=== PATIENT | female | born 1960 | race Caucasian/White ===

== ENCOUNTER 2018-05-31 19:38 | Emergency (ER) | payer OTHER, SELFPAY ==
[2018-05-31 19:39] VITALS: BP 142/89; PULSE 86; RESP 14; TEMP 36.6; O2SAT 95; BMI 24.7
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
[2018-05-31 21:41] VITALS: BP 135/78; PULSE 80; RESP 14; O2SAT 98
--- NOTE | 2018-05-31 22:09 | ED.DEP ---
ED Disposition - Plan for ED Patient: Disposition: Home or Assisted Living Chief Complaint: Head Injury Instructions: ED Neuralgia Trigeminal Referrals: Holly Gordon NP-C [Primary Care Provider] - 1-2 Days if not improving Additional Instructions: Your head CT was normal. If you have any further episodes of your severe facial pain, please see your neurologist for further workup. It is unclear what is causing your pain and there are many possible causes, but one possible cause of facial pain is trigeminal neuralgia. You would need further episodes of pain for this to be diagnosed. If you have any worsening of your condition or any new concerning symptoms, please return immediately to the emergency department for another evaluation.
[2018-05-31 22:24] VITALS: BP 122/74; PULSE 82; RESP 14; O2SAT 98
== END 2018-05-31 22:25 | disposition home or self-care (01) ==
PROVIDERS: Emergency Provider Emergency Medicine; Family Provider Nurse Practitioner Adult Health; PCP Nurse Practitioner Adult Health
DX: R51 Headache (principal); M79.89 Other specified soft tissue disorders; G40.909 Epilepsy, unspecified, not intractable, without status epilepticus; S00.03XD Contusion of scalp, subsequent encounter; S05.11XD Contusion of eyeball and orbital tissues, right eye, subsequent encounter; V19.9XXD Pedal cyclist (driver) (passenger) injured in unspecified traffic accident, subsequent encounter; Z79.899 Other long term (current) drug therapy
CPT/HCPCS: 70450; 99282

== ENCOUNTER 2023-04-22 18:53 | Inpatient (IN) | payer OTHER, SELFPAY ==
[2023-04-22 18:54] VITALS: BP 96/79; PULSE 88; RESP 14; TEMP 37.2; O2SAT 100; BMI 20.7
--- NOTE | 2023-04-22 19:05 | CT_ITS ---
We are attempting to reach an attending provider to discuss findings. An addendum with communication details will be sent when the communication is complete. STUDY: CT ABDOMEN AND PELVIS WITH CONTRAST REASON FOR EXAM: Female, 63 years old. abdominal pain, left lower quadrant distention x1 day. History of bowel obstruction, partial colon resection 32 years ago. RADIATION DOSAGE (If Supplied By Facility): CTDIvol = ( 10.45 ) mGy, DLP = ( 372.70 ) mGycm TECHNIQUE: Transaxial images were obtained from the dome of the diaphragm to the symphysis pubis without oral contrast. IV 75mL Isovue-370 was administered. Sagittal and coronal images were reconstructed. Individualized dose optimization techniques were used for this CT. COMPARISON: None. FINDINGS: The visualized lung bases are unremarkable. The visualized portions of the heart are within normal limits. Normal liver. Normal gallbladder and extrahepatic biliary system. Normal spleen. Normal pancreas. Normal bilateral adrenal glands. Normal right kidney. Multiple small nonobstructing stones in the left kidney. No hydronephrosis, ureteral stone, ureteral dilatation. Normal visualized stomach. Multiple loops of bowel dilated fluid-filled small bowel with a loop of small bowel with feculent appearing material and a transition point near the umbilicus consistent with a severe small bowel obstruction. No bowel wall thickening or pneumatosis to suggest ischemia. No pneumoperitoneum to suggest perforation. Normal colon. The appendix is visualized and appears normal. Normal abdominal aorta. Normal inferior vena cava. Normal retroperitoneum. Normal urinary bladder. Small amount of free fluid in the pelvis. Normal abdominal wall. Mild dextroscoliosis of the lumbar spine. CT/Abdomen/Pelvis W IV Cont ONLY IMPRESSION: Severe small bowel obstruction with a transition point involving small bowel near the umbilicus with a small amount of free fluid but no evidence of ischemia or perforation. Electronically Signed: Philip Evans MD at 21:02 EDT ,
--- NOTE | 2023-04-22 19:07 | EDS_ITS ---
HPI <KOKO Sharma - Last Filed: 04/22/23 20:57> History of Present Illness Chief Complaint: Abd Pain Narrative Narrative: 63-year-old female presents with 2 days of generalized abdominal pain and distention. She had normal p.o. intake yesterday but today feels nauseous and did not eat anything. She has been lying in bed all day secondary to the pain. She has normal daily bowel movements and had 2 today. No melena or hematochezia. No urinary symptoms. She had a bowel obstruction 32 years ago after she delivered her son and required a partial colon resection. She has not had any issues since then and reports a normal colonoscopy 9 years ago. PFSH <KOKO Sharma - Last Filed: 04/22/23 20:57> [facility] Medical History (Updated 04/22/23 @ 21:[address] Michelle Farooq MD) Hx of intestinal obstruction Hypothyroidism Seizure disorder Home Medications lamotrigine 100 mg tablet 250 mg PO BID 05/31/18 [History Last Taken Unknown] levothyroxine 150 mcg tablet 150 mcg PO DAILY 04/22/23 [History Last Taken Unknown] zonisamide 100 mg capsule 450 mg PO QHS 04/22/23 [History Last Taken Unknown] Allergy/AdvReac Type Severity Reaction Status Date / Time No Known Allergies Allergy Verified 04/22/23 18:54 Surgical History (Updated 04/22/23 @ 21:[address] Michelle Farooq MD) S/P partial resection of colon Social History Smoking Status: Never smoker ROS <KOKO Sharma - Last Filed: 04/22/23 20:57> ROS ED ROS Narrative Constitutional: Negative for fever, chills, malaise. CVS: Negative for palpitations, chest pain. Respiratory: Negative for shortness of breath, cough. GI: Positive for abdominal pain, nausea. Negative for vomiting, diarrhea, constipation, melena, hematochezia. : Negative for dysuria, hematuria or frequency. EXAM <KOKO Sharma - Last Filed: 04/22/23 20:57> Physical Exam Narrative Exam Narrative: CONST: Patient sitting in no acute distress. EYES: Normal inspection. NECK: Normal inspection. RESP: No respiratory distress, CTAB. CVS: Regular rate and rhythm, no murmur, no gallop. ABD: Soft, moderately distended with generalized tenderness and guarding. No rebound. No rigidity. Normal bowel sounds x4. SKIN: Color normal, no rash, warm, dry, intact. EXTREMITIES: Normal appearance, no pedal edema. NEURO: Oriented x4. PSYCH: Normal affect. Const Vital Signs: 04/22/23 18:54 04/22/23 20:18 04/22/23 21:07 Temperature 98.9 F Temperature Source Temporal Pulse Rate 88 81 87 Respiratory Rate 14 16 Blood Pressure 96/79 115/81 H 128/87 H Blood Pressure Mean 84 92 100 Pulse Ox 100 99 <Dr. Jerry Sears MD - Last Filed: 04/22/23 21:55> Physical Exam Const Vital Signs: 04/22/23 18:54 04/22/23 20:18 04/22/23 21:07 Temperature 98.9 F Temperature Source Temporal Pulse Rate 88 81 87 Respiratory Rate 14 16 Blood Pressure 96/79 115/81 H 128/87 H Blood Pressure Mean 84 92 100 Pulse Ox 100 99 MDM <KOKO Sharma - Last Filed: 04/22/23 20:57> [facility] Narrative Medical decision making narrative: History gathered from: Patient and spouse Patient was evaluated for 2 days of abdominal pain and distention. She appears well and nontoxic. BP is 96/79 with otherwise normal vital signs. Clinically she does not look ill or septic. She does have moderate abdominal distention and tenderness with voluntary guarding. I can hear bowel sounds present and she states she still passing gas and had 2 BMs today but clinically I am concerned for an obstruction. CBC shows white count of 15.2. BMP unremarkable. My i nterpretation of the CT shows air-fluid levels consistent with small bowel obstruction. I discussed the case with the surgeon, Dr. Wan, who requested an NG tube to be placed and admission to medicine. She also requested UA to rule out another potential cause of the leukocytosis which is pending. Differential: Bowel obstruction, ileus, diverticulitis, neoplasm Lab Data Attestation: I reviewed the patient's lab results. Labs: Laboratory Results - last 24 hr 04/22/23 04/22/23 19:15 20:40 WBC 15.2 H RBC 5.02 Hgb 14.9 Hct 45.8 MCV 91.2 MCH 29.7 MCHC 32.5 RDW Std Deviation 42.5 RDW Coeff of Nan 12.8 Plt Count 302 MPV 9.0 Immature Gran % (Auto) 0.400 Neut % (Auto) 85.4 H Lymph % (Auto) 8.0 L [place] % (Auto) 5.5 Eos % (Auto) 0.3 Baso % (Auto) 0.4 Absolute Neuts (auto) 13.0 H Absolute Lymphs (auto) 1.21 Nucleated RBC % 0 Sodium 141 Potassium 3.9 Chloride 106 Carbon Dioxide 25.0 Anion Gap 10 BUN 12 Creatinine 1.03 H Estim Creat Clear Calc 45.65 Est GFR (MDRD) Af Amer 69 Est GFR (MDRD) Non-Af 57 L BUN/Creatinine Ratio 11.7 Glucose 123 H Calcium 10.3 H Total Bilirubin 0.70 AST 10 L ALT 19 Alkaline Phosphatase 132 H Total Protein 7.5 Albumin 4.2 Globulin 3.3 Albumin/Globulin Ratio 1.3 Urine Color Yellow Urine Clarity Sl. Cloudy Urine pH 6.5 Ur Specific [place] 1.015 Urine Protein 30 H Urine Glucose (UA) Normal Urine Ketones 50 H Urine Occult Blood 10 H Urine Nitrite Negative Urine Bilirubin Negative Urine Urobilinogen 1 H Ur Leukocyte Esterase 500 H Urine RBC 0-5 SEEN Urine WBC 10-25 SEEN Ur Squamous Epith Cells 0-5 SEEN Urine Bacteria 3+ Urine Mucus 0 SEEN Radiography Diagnostic Testing: Clinical Impression(s) from Imaging Studies Abdomen/Pelvis CT 04/22/23 19:05 IMPRESSION: Severe small bowel obstruction with a transition point involving small bowel near the umbilicus with a small amount of free fluid but no evidence of ischemia or perforation. Electronically Signed: Philip Evans MD at 21:02 EDT , ADDENDUM: 04/22/23 2140 IMPRESSION: Severe small bowel obstruction with a transition point involving small bowel near the umbilicus with a small amount of free fluid but no evidence of ischemia or perforation. N.B. : The above Results were Read Back by Philip Evans MD to Jerry Sears MD, and understanding confirmed on 04/22/2023 21:33:24 (ET). Electronically Signed: Philip Evans MD at 21:02 EDT , KUB X-Ray 04/22/23 21:03 IMPRESSION: 1. Nasogastric tube with the tip in the left upper quadrant likely in the body the stomach. 2. Moderate small bowel obstruction. 3. No pneumoperitoneum. Electronically Signed: Philip Evans MD at 21:23 EDT , <Dr. Jerry Sears MD - Last Filed: 04/22/23 21:55> [facility] Lab Data Labs: Laboratory Results - last 24 hr 04/22/23 04/22/23 19:15 20:40 WBC 15.2 H RBC 5.02 Hgb 14.9 Hct 45.8 MCV 91.2 MCH 29.7 MCHC 32.5 RDW Std Deviation 42.5 RDW Coeff of Nan 12.8 Plt Count 302 MPV 9.0 Immature Gran % (Auto) 0.400 Neut % (Auto) 85.4 H Lymph % (Auto) 8.0 L [place] % (Auto) 5.5 Eos % (Auto) 0.3 Baso % (Auto) 0.4 Absolute Neuts (auto) 13.0 H Absolute Lymphs (auto) 1.21 Nucleated RBC % 0 Sodium 141 Potassium 3.9 Chloride 106 Carbon Dioxide 25.0 Anion Gap 10 BUN 12 Creatinine 1.03 H Estim Creat Clear Calc 45.65 Est GFR (MDRD) Af Amer 69 Est GFR (MDRD) Non-Af 57 L BUN/Creatinine Ratio 11.7 Glucose 123 H Calcium 10.3 H Total Bilirubin 0.70 AST 10 L ALT 19 Alkaline Phosphatase 132 H Total Protein 7.5 Albumin 4.2 Globulin 3.3 Albumin/Globulin Ratio 1.3 Urine Color Yellow Urine Clarity Sl. Cloudy Urine pH 6.5 Ur Specific [place] 1.015 Urine Protein 30 H Urine Glucose (UA) Normal Urine Ketones 50 H Urine Occult Blood 10 H Urine Nitrite Negative Urine Bilirubin Negative Urine Urobilinogen 1 H Ur Leukocyte Esterase 500 H Urine RBC 0-5 SEEN Urine WBC 10-25 SEEN Ur Squamous Epith Cells 0-5 SEEN Urine Bacteria 3+ Urine Mucus 0 SEEN Radiography Diagnostic Testing: Clinical Impression(s) from Imaging Studies Abdomen/Pelvis CT 04/22/23 19:05 IMPRESSION: Severe small bowel obstruction with a transition point involving small bowel near the umbilicus with a small amount of free fluid but no evidence of ischemia or perforation. Electronically Signed: Philip Evans MD at 21:02 EDT Reading Location ID and State: [id number] / [email or web address] Tel , Service support , ADDENDUM: 04/22/23 2140 IMPRESSION: Severe small bowel obstruction with a transition point involving small bowel near the umbilicus with a small amount of free fluid but no evidence of ischemia or perforation. N.B. : The above Results were Read Back by Philip Evans MD to Jerry Sears MD, and understanding confirmed on 04/22/2023 21:33:24 (ET). Electronically Signed: Philip Evans MD at 21:02 EDT Reading Location ID and State: [id number] / [email or web address] Tel , Service support , KUB X-Ray 04/22/23 21:03 IMPRESSION: 1. Nasogastric tube with the tip in the left upper quadrant likely in the body the stomach. 2. Moderate small bowel obstruction. 3. No pneumoperitoneum. Electronically Signed: Philip Evans MD at 21:23 EDT Reading Location ID and State: [id number] / [email or web address] Tel , Service support , Management Discussion w/another healthcare provider: Hospitalist and Privacy Compliance Manager Treatment and Re-Evaluation :: I have personally performed a face to face assessment of the patient and have reviewed the COTY Note. I performed a substantive portion of the visit including all aspects of the following. My doe findings include: History: Patient started with some abdominal just mild discomfort yesterday morning. She thought maybe she had strained or lift something. She was able to eat yesterday but the discomfort just slowly worsened. She then states that she just did not sleep well last night due to cramping. She has had 2 bowel movements today but is now not passing gas. No nausea or vomiting. She has not had fevers. She does have a history of a small bowel obstruction after delivery about 32 years ago. She had a partial colectomy that included appendectomy. She also had a unilateral ovary and tubal removal. Exam: Patient awake alert. Nontoxic. Lungs are clear. Heart is regular. Abdomen is slightly increased bowel sounds. It looks distended compared to the rest of the patient is quite thin. There is no notable tenderness though. Medical Decision Making: Patient had blood work done and CT scan. My independent her potation the CT is small bowel obstruction and final reading is small bowel with a transition point seen. Case was discussed with Dr. Wan. An NG placed meant was done due to the high-grade obstruction. Position is good on imaging afterwards and is the final reading consistent with that. Patient also has an elevated white count. The urinalysis would check. Although she does not have symptoms of UTI her urine is pretty convincing of infection. We will treat this pending culture. Case was also discussed with hospitalist Discharge Plan Triage Chief Complaint: Abd Pain ED Midlevel Provider: Heather Dee ED Provider: Jerry Sears Dx/Rx/DC Orders Clinical Impression: SBO (small bowel obstruction), Urinary tract infection, History of partial colectomy Prescriptions: No Action lamotrigine 100 MG tablet 250 mg PO BID Patient Comments: zonisamide 100 mg capsule 450 mg PO QHS Patient Comments: take 4 capsules by mouth once daily levothyroxine 150 mcg tablet 150 mcg PO DAILY Patient Comments: take 1 tablet by mouth once daily Primary Care Provider: Nell Naidu NP Referrals: Holly Gordon NP, TECHNICAL EDUCATION TEACHER-C [Non-Staff] - Disposition Disposition: Acute Care Hospital [facility]
[2023-04-22 19:26] LABS: Absolute Lymphocyte Count 1.21 X10^3/uL (0.83-4.51); Basophil# 0.06 X10^3/uL; Basophil% 0.4 % (0-1); Eosinophil# 0.05 X10^3/uL; Eosinophils% 0.3 % (0-5); Hematocrit 45.8 % (37-47); Hemoglobin 14.9 g/dL (12.0-15.0); Lymphocyte # 1.21 X10^3/ul (0.83-4.51); Mean Corp Hgb Conc 32.5 g/dL (32-36); Mean Corpuscular Hgb 29.7 pg (27.0-32.0); Mean Corpuscular Volume 91.2 fL (81-99); Monocyte# 0.83 X10^3/uL; Monocyte% 5.5 % (0-10); NRBC Flagged by Analyzer 0 % (0-5); Neutrophil # 12.97 X10^3/uL (2.7-7.7); Neutrophil % 85.4 % (47-70); Platelet Count 302 K/mm3 (150-450); RBC Distribution Width CV 12.8 % (11.6-14.6); RBC Distribution Width SD 42.5 fl (35.1-43.9); Red Blood Count 5.02 M/mm3 (4.2-5.4); White Blood Count 15.2 K/mm3 (4.4-11.0)
[2023-04-22] MEDS: Ondansetron 4 MG/2 ML Vial IV (19:26)
[2023-04-22] MEDS: 0.9% Normal Saline 1,000 ML 999 ML IV (19:27)
[2023-04-22] MEDS: fentaNYL 100 MCG/2 ML Ampul 50 MCG IV ×2 (19:27→22:00)
[2023-04-22 19:43] LABS: ALB/GLOB Ratio 1.3 RATIO (0.9-2.4); AST(SGOT) 10 U/L (15-37); Alanine Aminotransfer ALT/SGPT 19 U/L (13-56); Albumin, Serum 4.2 g/dL (3.2-5.0); Alkaline Phosphatase 132 U/L (45-117); Anion Gap 10 (5-15); BUN 12 mg/dL (7-18); BUN/Creat Ratio 11.7 RATIO (10-20); Calcium,Total 10.3 mg/dL (8.5-10.1); Chloride 106 mmol/L (98-107); Creatinine, Serum 1.03 mg/dL (0.55-1.02); EST Glomerular Filtration Rate 57 mL/min (>60); Est Glom Filt Rate - Afr Amer 69 mL/min (>60); Estimated Creatinine Clearance 45.65 ml/min; Globulin 3.3 g/dL (2.2-4.2); Glucose 123 mg/dL (74-106); Potassium 3.9 mmol/L (3.5-5.1); Protein, Total 7.5 g/dL (6.4-8.2); Sodium Level 141 mmol/L (136-145)
[2023-04-22 20:18] VITALS: BP 115/81; PULSE 81; RESP 16; O2SAT 99
[2023-04-22 20:49] LABS: Color, Urine Yellow (Yellow); Glucose, Dipstick Normal (Normal); Ketone-Dipstick 50 mg/dl (Negative); Leukocyte Esterase-Dipstick 500 /ul (Negative); Mucous, Urine 0 SEEN /hpf (<or=2+); Nitrite-Dipstick Negative (Negative); Occult Blood-Urine 10 /ul (Negative); Protein-Dipstick 30 mg/dl (Negative); Specific Gravity, Urine 1.015 (1.002-1.030); Urine Bilirubin Dipstick Negative (Negative); Urine Clarity Sl. Cloudy (Clear); Urine Urobilinogen 1 mg/dl (Normal); Urine pH 6.5 (5.0 - 8.0)
[2023-04-22 21:02] LABS: Bacteria 3+ /hpf (None Seen); Red Blood Cells-Urine 0-5 SEEN /hpf (0-5); White Blood Cells 10-25 SEEN /hpf (0-5)
[2023-04-22 21:03] LABS: Squamous Epithelial Cells - UA 0-5 SEEN /hpf (5-10)
--- NOTE | 2023-04-22 21:03 | RAD_ITS ---
STUDY: X-RAY - ABDOMEN/PELVIS REASON FOR EXAM: Female, 63 years old. ng tube -- KUB with both diaphragms for NG/OG Verification TECHNIQUE: Single AP view of the abdomen / pelvis. COMPARISON: None. FINDINGS: Nasogastric tube with the tip of the left upper quadrant likely in the body the stomach. There are dilated loops of the small intestine with a non-distended colon consistent with a small bowel obstruction. There is no demonstrated free abdominal air. The visualized liver, spleen and kidneys are grossly normal in size and morphology. Normal soft tissue structures. Normal visualized osseous structures. RAD/Abdomen Single View (Portable) IMPRESSION: 1. Nasogastric tube with the tip in the left upper quadrant likely in the body the stomach. 2. Moderate small bowel obstruction. 3. No pneumoperitoneum. Electronically Signed: Philip Evans MD at 21:23 EDT ,
[2023-04-22 21:07] VITALS: BP 128/87; PULSE 87
--- NOTE | 2023-04-22 21:52 | HP.PCM.HOS_ITS ---
HPI - General General Date of Admission: 04/22/23 Date of Service: 04/22/23 Chief Complaint: Abdominal pain, nausea, abd distention. HPI Narrative The patient is a 63 y/o F w/ PMHx: Hypothyroidism, Seizure disorder, Hx prior bowel obstruction s/p partial colectomy who presents to the [facility] ED on 04/22/23 with generalized abdominal discomfort and distention with ability to take normal oral intake yesterday however since then she has become nauseated and has not been unable to eat laying in bed without ability to move secondary to severity of pain with a last normal bowel movement approximately 2 days prior with no alteration to the color of the stool at that time and no specific recent urinary symptoms with a remote history of a bowel obstruction 32 years prior after she delivered her son requiring at that time a partial colectomy with a last normal colonoscopy noted 9 years prior with no issues otherwise however given ongoing presentation prompted ED evaluation. Patient notes her pain at its onset and worse was rated 8-9 out of 10 in severity noted to be dull aching and sharp at the same time now improved down to 2 out of 10 following NG tube placement as well as pain regimen administration in the ED. She denies any change management director the last several days of her activity or medications. Work-up in the ED included T98.9, heart rate 89, BP initially 96/79 with most recent repeat 120/87, respiratory rate 14, 100% room air, CBC with WC 15.2, A1 14.9, platelets 302 with left shift, CMP with BUN/creatinine 12/1.03, glucose 123, calcium 10.3, hepatic profile unremarkable aside alk phos 132, urinalysis with specific remedy 1.015, protein 30, ketone 50, occult blood 10, negative nitrate, 500 leukocyte Estrace with 10-25 urine WBCs with 3+ urine bacteria, urine culture pending per ED, KUB with nasogastric tube within the tip of the left upper quadrant likely in the body of the stomach with a moderate small bowel obstruction noted with no pneumoperitoneum evident, CT abdomen and pelvis with a severe small bowel obstruction with a transition point involving small bowel near the umbilicus with small amount of free fluid but no evidence of ischemia or perforation. In the ED patient administered 1 L normal saline, fentanyl 50 mcg IV x1, Zofran 4 mg IV x1 as well as IV rocephin. [facility] Medical History (Updated 04/22/23 @ 21:[address] Michelle Farooq MD) Hx of intestinal obstruction Hypothyroidism Seizure disorder Home Medications lamotrigine 100 mg tablet 250 mg PO BID 05/31/18 [History Last Taken Unknown] levothyroxine 150 mcg tablet 150 mcg PO DAILY 04/22/23 [History Last Taken Unknown] zonisamide 100 mg capsule 450 mg PO QHS 04/22/23 [History Last Taken Unknown] Allergy/AdvReac Type Severity Reaction Status Date / Time No Known Allergies Allergy Verified 04/22/23 18:54 Family History (Updated 04/22/23 @ 23:[address] Michelle Farooq MD) Mother Heart disease Hypertension CAD (coronary artery disease) Myocardial infarction Father Cancer Surgical History (Updated 04/22/23 @ 23:[address] Michelle Farooq MD) History of tonsillectomy and adenoidectomy S/P S/P partial resection of colon Social History (Updated 04/22/23 @ 23:[address] Michelle Farooq MD) household members: spouse Smoking Status: Never smoker alcohol intake: never substance use type: does not use ROS ROS Narrative Admission Review of Systems: CONSTITUTIONAL: No weight loss, fever, chills, + weakness or fatigue. HEENT: Eyes: No visual loss, blurred vision, double vision or yellow sclerae. Ears, Nose, Throat: No hearing loss, sneezing, congestion, runny nose or sore throat. SKIN: No rash or itching, lesions, wounds. CARDIOVASCULAR: No chest pain, chest pressure or chest discomfort, palpitations, edema, orthopnea, syncopal events. RESPIRATORY: No shortness of breath, cough or sputum, wheezing, hemoptysis. GASTROINTESTINAL: + anorexia, nausea, vomiting, abdominal pain. No diarrhea, melena, BRBPR. GENITOURINARY: No dysuria, frequency, urgency or retention. NEUROLOGICAL: + Seizure disorder history. No headache, dizziness, syncope, paralysis, ataxia, numbness or tingling in the extremities, focal weakness, change in bowel or bladder control. MUSCULOSKELETAL: + muscle, back pain, joint pain or stiffness. HEMATOLOGIC: No anemia, bleeding or bruising. LYMPHATICS: No enlarged nodes. No history of splenectomy. PSYCHIATRIC: No history of depression or anxiety. ENDOCRINOLOGIC: No reports of sweating, cold or heat intolerance. No polyuria or polydipsia. ALLERGIES: No history of asthma, hives, eczema or rhinitis. Vital Signs Vital Signs Vital Signs: 04/22/23 18:54 04/22/23 20:18 04/22/23 21:07 Temperature 98.9 F Temperature Source Temporal Pulse Rate 88 81 87 Respiratory Rate 14 16 Blood Pressure 96/79 115/81 H 128/87 H Blood Pressure Mean 84 92 100 Pulse Ox 100 99 Weight Weight: 117 lb 4.8 oz Body Mass Index (BMI) 20.7 Physical Exam Narrative Physical Examination: General: Awake, alert, oriented x 3 and cooperative, seated upright in ED bed, fatigued appearing, NG tube in place. Skin: Normal color, normal turgor, no icterus, no cyanosis. HEENT: AT/NC, EOMI, PERRLA, moderately dry MM, NG tube in place, no carotid bruits or JVD noted. Lungs: CTA bilaterally, moderate effort, mild decrease BL bases, no rales, ronchi or wheezing. Heart: Regular rate and rhythm; no gallop, rub audible. Abdomen: Soft, generalized discomfort with palpation, no obvious distention currently status post NG tube placement, absent bowel sounds, no obvious HSM. Extremities: No cyanosis, clubbing, or edema. Neurological: Patient awake, alert, oriented as noted, cognitive function intact; pupils equally reactive to light and accommodation, cranial nerves II- XII grossly normal, moving all 4 extremities, no focal deficits, strength moderately globally decreased secondary to acute presentation. Psychiatric: Affect appears fatigued, notes discomfort has improved, no acute evidence of depressive or anxiety feelings. Results Lab / Micro Data 04/22/23 19:15 04/22/23 19:15 Labs: Laboratory Results - last 24 hr 04/22/23 19:15: WBC 15.2 H, RBC 5.02, Hgb 14.9, Hct 45.8, MCV 91.2, MCH 29.7, MCHC 32.5, RDW Std Deviation 42.5, RDW Coeff of Nan 12.8, Plt Count 302, MPV 9.0, Immature Gran % (Auto) 0.400, Neut % (Auto) 85.4 H, Lymph % (Auto) 8.0 L, [place] % (Auto) 5.5, Eos % (Auto) 0.3, Baso % (Auto) 0.4, Absolute Neuts (auto) 13.0 H, Absolute Lymphs (auto) 1.21, Nucleated RBC % 0, Sodium 141, Potassium 3.9, Chloride 106, Carbon Dioxide 25.0, Anion Gap 10, BUN 12, Creatinine 1.03 H, Estim Creat Clear Calc 45.65, Est GFR (MDRD) Af Amer 69, Est GFR (MDRD) Non-Af 57 L, BUN/Creatinine Ratio 11.7, Glucose 123 H, Calcium 10.3 H, Total Bilirubin 0.70, AST 10 L, ALT 19, Alkaline Phosphatase 132 H, Total Protein 7.5, Albumin 4.2, Globulin 3.3, Albumin/Globulin Ratio 1.3 04/22/23 20:40: Urine Color Yellow, Urine Clarity Sl. Cloudy, Urine pH 6.5, Ur Specific [place] 1.015, Urine Protein 30 H, Urine Glucose (UA) Normal, Urine Ketones 50 H, Urine Occult Blood 10 H, Urine Nitrite Negative, Urine Bilirubin Negative, Urine Urobilinogen 1 H, Ur Leukocyte Esterase 500 H, Urine RBC 0-5 SEEN, Urine WBC 10-25 SEEN, Ur Squamous Epith Cells 0-5 SEEN, Urine Bacteria 3+, Urine Mucus 0 SEEN Radiology Impression Abdomen/Pelvis CT 04/22/23 19:05 IMPRESSION: Severe small bowel obstruction with a transition point involving small bowel near the umbilicus with a small amount of free fluid but no evidence of ischemia or perforation. Electronically Signed: Philip Evans MD at 21:02 EDT , ADDENDUM: 04/22/23 2140 IMPRESSION: Severe small bowel obstruction with a transition point involving small bowel near the umbilicus with a small amount of free fluid but no evidence of ischemia or perforation. N.B. : The above Results were Read Back by Philip Evans MD to Jerry Sears MD, and understanding confirmed on 04/22/2023 21:33:24 (ET). Electronically Signed: Philip Evans MD at 21:02 EDT Reading Location ID and State: [id number] / [employer] Tel , Service support , KUB X-Ray 04/22/23 21:03 IMPRESSION: 1. Nasogastric tube with the tip in the left upper quadrant likely in the body the stomach. 2. Moderate small bowel obstruction. 3. No pneumoperitoneum. Electronically Signed: Philip Evans MD at 21:23 EDT , Assessment & Plan Assessment/Plan (1) SBO (small bowel obstruction): PLAN: Plan The patient is a 63 y/o F w/ PMHx: Hypothyroidism, Seizure disorder, Hx prior bowel obstruction s/p partial colectomy who presents to the [facility] ED on 04/22/23 with generalized abdominal discomfort and distention with ability to take normal oral intake yesterday however since then she has become nauseated and has not been unable to eat laying in bed without ability to move secondary to severity of pain with a last normal bowel movement approximately 2 days prior with no alteration to the color of the stool at that time with a remote history of a bowel obstruction. #1. Abdominal pain, nausea w/ SBO: Will admit to MS, maintain on IVFs, continue NGT to suction, strict I&Os, IV pain/anti-emetics PRN, serial KUB as needed to montior bowel function, PPI IV, maintain NPO on bowel rest. General surgery consulted and will evaluate patient. #2. Suspected Acute Urinary Tract Infection: UA upon ED evaluation remarkable, pending UCx, continue IVFs, monitor I/Os, continue IV Rocephin w/ transition as able pending sensitivities and speciation. #3. Hypothyroidism: Given presentation will temporally hold oral levothyroxine regimen, resume once able given NG tube placement. #4. Seizure disorder: Given NG tube placement with severe bowel obstruction we will temporally hold oral regimen and unfortunately lamotrigine and zonisamide will not transition to an IV version therefore will place on IV Keppra with load to be cautious in the interim. #5. DVT Prophylaxis: SCDs, will defer chemoprophylaxis at this point as high surgical potential need. #6. CODE status: Patient does not have healthcare power of deputy county attorney or living will in place but her would be her decision-maker if necessary. Full Code. Admission Evaluation Time spent evaluating chart, patient history, patient evaluation, care planning and discussion with specialists: 60 minutes. Charges/Coding Visit Charges Inpatient E&M: 65200 Init Hosp L2
[2023-04-22 21:54] VITALS: BP 128/87; PULSE 88; RESP 18; TEMP 37.2; O2SAT 99
[2023-04-22] MEDS: Ceftriaxone 1 GM/50 ML BAG IV (22:00)
[2023-04-23] VITALS (12 sets, daily range): BP systolic 97–124; BP diastolic 64–81; PULSE 82–100; RESP 16–18; TEMP 36.9–37.3; O2SAT 93–100; BMI 21.2
[2023-04-23] MEDS: 0.9% Normal Saline 1,000 ML 100 ML IV ×3 (00:11→20:47)
[2023-04-23] MEDS: levETIRAcetam IV 1,000 MG/100 ML BAG 400 MG IV (00:18)
[2023-04-23] MEDS: 0.9% Saline Lock 10 ML Syringe IV ×5 (00:20→22:59)
[2023-04-23] MEDS: Morphine 2 MG/ML Syringe IV ×6 (00:20→22:59)
[2023-04-23] MEDS: Ondansetron 4 MG/2 ML Vial IV ×2 (00:20→08:13)
--- NOTE | 2023-04-23 05:13 | RAD_ITS ---
INDICATION: SBO EXAMINATION/TECHNIQUE: X-RAY - Supine AP view. COMPARISON: 04/22/2023 x-ray and CT. FINDINGS: BOWEL GAS PATTERN: Persistent dilated loops of small bowel measuring up to 4.0 cm in diameter. Enteric tube side-port and distal tip are distal to the GE junction likely within the proximal stomach. No significant stool retention. CALCIFICATIONS: No abnormal calcifications identified. LOWER CHEST: Visualized lung bases are unremarkable. BONES AND SOFT TISSUES: No acute abnormality. RAD/Abdomen Single View (Portable) IMPRESSION: Small bowel obstruction. Electronically Signed: Brian Chambers DO at 5:38 EDT ,
--- NOTE | 2023-04-23 06:36 | EX.PCM.CON.S ---
Assessment & Plan Assessment/Plan (1) SBO (small bowel obstruction): (2) UTI (urinary tract infection): PLAN: Plan Patient CT abdomen pelvis does show had tight turn likely due to adhesions causing the obstruction. Patient's NG was not able to drain as well as would hope due to solid food in the stomach. I do not think any oral contrast will go anywhere due to not being able to drain and solid food?I will not try a small bowel follow-through.. Discussed with patient plan for diagnostic laparoscopy, possible laparotomy including risk not limited to bleeding, infection, bowel resection, injury to other organ and anesthesia. Patient no further questions this time. leukocytosis- continue abx for UTI Continue antibiotics for UTI per primary. Lynda Wan M.D. Pager: [phone] [facility] [address] [place] [address], [facility], [address] [place] [id number] Office: [phone] HPI Consult Data Date of Consult: 04/23/23 HPI Narrative Reason for Consultation: Small bowel obstruction HPI Narrative: PATTI QUIGLEY, is a 63 F who presents to the ER due to abdominal pain and nausea. Patient's pain started on Wednesday and continued to get worse. On patient was 30 she did have likely small bowel resection due to twisting of bowels involving patient's fibroid. Patient's CAT scan did show fecalization of small bowel along with a tight turn in the mid/right lower abdomen as site of transition. Patient also had a UTI on admit. Her blood counts 15.2 and?currently 15.7 she is on Rocephin for the UTI. Patient NG only has 200 and canister did not have much when placed as patient did have a large amount of solid food in stomach on CT. Patient's KUB from this morning still shows dilated small bowel and solid food in the stomach. [facility] Medical History (Updated 04/23/23 @ 07:[address] Lynda Wan MD) Hx of intestinal obstruction Hypothyroidism Seizure disorder Home Medications lamotrigine 100 mg tablet 250 mg PO BID 05/31/18 [History Last Taken Unknown] levothyroxine 150 mcg tablet 150 mcg PO DAILY 04/22/23 [History Last Taken Unknown] zonisamide 100 mg capsule 450 mg PO QHS 04/22/23 [History Last Taken Unknown] Allergy/AdvReac Type Severity Reaction Status Date / Time No Known Allergies Allergy Verified 04/22/23 18:54 Family History (Updated 04/22/23 @ 23:[address] Michelle Farooq MD) Mother Heart disease Hypertension CAD (coronary artery disease) Myocardial infarction Father Cancer Surgical History (Updated 04/23/23 @ 07:[address] Lynda Wan MD) History of tonsillectomy and adenoidectomy S/P S/P partial resection of colon Social History (Updated 04/22/23 @ 23:[address] Michelle Farooq MD) household members: spouse Smoking Status: Never smoker alcohol intake: never substance use type: does not use Physical Exam Const alert and oriented x3 General Appearance: cooperative HEENT normocephalic Resp normal respiratory effort Cardio Rate: regular rate GI soft to palpation Inspection: abdominal distention Palpation: tender LLQ, RLQ and RUQ; Negative for guarding Extremity normal to inspection Skin no rashes or lesions noted Neuro CN's II-XII intact bilaterally Psych affect normal Lab / Micro Data 04/23/23 05:55 04/22/23 19:15 Labs: Laboratory Results - last 24 hr 04/22/23 19:15: WBC 15.2 H, RBC 5.02, Hgb 14.9, Hct 45.8, MCV 91.2, MCH 29.7, MCHC 32.5, RDW Std Deviation 42.5, RDW Coeff of Nan 12.8, Plt Count 302, MPV 9.0, Immature Gran % (Auto) 0.400, Neut % (Auto) 85.4 H, Lymph % (Auto) 8.0 L, [place] % (Auto) 5.5, Eos % (Auto) 0.3, Baso % (Auto) 0.4, Absolute Neuts (auto) 13.0 H, Absolute Lymphs (auto) 1.21, Nucleated RBC % 0, Sodium 141, Potassium 3.9, Chloride 106, Carbon Dioxide 25.0, Anion Gap 10, BUN 12, Creatinine 1.03 H, Estim Creat Clear Calc 45.65, Est GFR (MDRD) Af Amer 69, Est GFR (MDRD) Non-Af 57 L, BUN/Creatinine Ratio 11.7, Glucose 123 H, Calcium 10.3 H, Total Bilirubin 0.70, AST 10 L, ALT 19, Alkaline Phosphatase 132 H, Total Protein 7.5, Albumin 4.2, Globulin 3.3, Albumin/Globulin Ratio 1.3 04/22/23 20:40: Urine Color Yellow, Urine Clarity Sl. Cloudy, Urine pH 6.5, Ur Specific [place] 1.015, Urine Protein 30 H, Urine Glucose (UA) Normal, Urine Ketones 50 H, Urine Occult Blood 10 H, Urine Nitrite Negative, Urine Bilirubin Negative, Urine Urobilinogen 1 H, Ur Leukocyte Esterase 500 H, Urine RBC 0-5 SEEN, Urine WBC 10-25 SEEN, Ur Squamous Epith Cells 0-5 SEEN, Urine Bacteria 3+, Urine Mucus 0 SEEN Radiology Impression Abdomen/Pelvis CT 04/22/23 19:05 IMPRESSION: Severe small bowel obstruction with a transition point involving small bowel near the umbilicus with a small amount of free fluid but no evidence of ischemia or perforation. Electronically Signed: Philip Evans MD at 21:02 EDT Reading Location ID and State: [id number] / [employer] Tel , Service support , ADDENDUM: 04/22/23 2140 IMPRESSION: Severe small bowel obstruction with a transition point involving small bowel near the umbilicus with a small amount of free fluid but no evidence of ischemia or perforation. N.B. : The above Results were Read Back by Philip Evans MD to Jerry Sears MD, and understanding confirmed on 04/22/2023 21:33:24 (ET). Electronically Signed: Philip Evans MD at 21:02 EDT , KUB X-Ray 04/22/23 21:03 IMPRESSION: 1. Nasogastric tube with the tip in the left upper quadrant likely in the body the stomach. 2. Moderate small bowel obstruction. 3. No pneumoperitoneum. Electronically Signed: Philip Evans MD at 21:23 EDT , KUB X-Ray 04/23/23 05:13 IMPRESSION: Small bowel obstruction. Electronically Signed: Brian Chambers DO at 5:38 EDT ,
[2023-04-23 06:45] LABS: Absolute Lymphocyte Count 1.16 X10^3/uL (0.83-4.51); Absolute Neutrophil Count 13.1 X10^3/uL (2.0-7.7); Basophil# 0.04 X10^3/uL; Basophil% 0.3 % (0-1); Eosinophil# 0.12 X10^3/uL; Eosinophils% 0.8 % (0-5); Hemoglobin 12.6 g/dL (12.0-15.0); Lymphocyte # 1.16 X10^3/ul (0.83-4.51); Lymphocyte % 7.4 % (19-41); Mean Corp Hgb Conc 32.3 g/dL (32-36); Mean Corpuscular Hgb 29.8 pg (27.0-32.0); Mean Corpuscular Volume 92.2 fL (81-99); Mean Platelet Vol. 9.5 fl (6.2-12.0); Monocyte# 1.19 X10^3/uL; Monocyte% 7.6 % (0-10); NRBC Flagged by Analyzer 0 % (0-5); Neutrophil # 13.09 X10^3/uL (2.7-7.7); Neutrophil % 83.4 % (47-70); Platelet Count 261 K/mm3 (150-450); RBC Distribution Width CV 12.9 % (11.6-14.6); RBC Distribution Width SD 43.4 fl (35.1-43.9); Red Blood Count 4.23 M/mm3 (4.2-5.4); White Blood Count 15.7 K/mm3 (4.4-11.0)
--- NOTE | 2023-04-23 07:16 | PN.HOSP_ITS ---
Reason for Visit Reason for Visit: Diagnoses Unspecified intestinal obstruction, unspecified as to partial versus complete o bstruction (04/22/23) Subjective Subjective Patient is 63-year-old lady with previous history of partial colectomy who pres ented with abdominal discomfort and distention. Imaging studies obtained came back consistent with Severe small bowel obstruction with a transition point involving small bowel near the umbilicus with a small amount of free fluid but no evidence of ischemia or perforation. Admitted to regular nursing floor for further Objective Data Objective Data Vital Signs: Vital Signs Temp Pulse Resp BP Pulse Ox O2 Del Method 98.8 F 82 18 118/76 98 Room Air 04/23/23 04:45 04/23/23 04:45 04/23/23 04:45 04/23/23 04:45 04/23/23 04:45 04/23/23 04:46 Oxygen Delivery Method Room Air Weight: 54.4 kg Body Mass Index (BMI) 21.2 Intake & Output: Intake and Output for Last 24 Hours 04/21/23 04/22/23 04/23/23 23:59 23:59 23:59 Intake Total 1000 / 1000 385 / 385 Balance 1000 / 1000 385 / 385 Lab / Micro Data 04/23/23 05:55 04/23/23 05:55 Labs: Laboratory Results - last 24 hr 04/22/23 19:15: WBC 15.2 H, RBC 5.02, Hgb 14.9, Hct 45.8, MCV 91.2, MCH 29.7, MCHC 32.5, RDW Std Deviation 42.5, RDW Coeff of Nan 12.8, Plt Count 302, MPV 9.0, Immature Gran % (Auto) 0.400, Neut % (Auto) 85.4 H, Lymph % (Auto) 8.0 L, [place] % (Auto) 5.5, Eos % (Auto) 0.3, Baso % (Auto) 0.4, Absolute Neuts (auto) 13.0 H, Absolute Lymphs (auto) 1.21, Nucleated RBC % 0, Sodium 141, Potassium 3.9, Chloride 106, Carbon Dioxide 25.0, Anion Gap 10, BUN 12, Creatinine 1.03 H, Estim Creat Clear Calc 45.65, Est GFR (MDRD) Af Amer 69, Est GFR (MDRD) Non-Af 57 L, BUN/Creatinine Ratio 11.7, Glucose 123 H, Calcium 10.3 H, Total Bilirubin 0.70, AST 10 L, ALT 19, Alkaline Phosphatase 132 H, Total Protein 7.5, Albumin 4.2, Globulin 3.3, Albumin/Globulin Ratio 1.3 04/22/23 20:40: Urine Color Yellow, Urine Clarity Sl. Cloudy, Urine pH 6.5, Ur Specific [place] 1.015, Urine Protein 30 H, Urine Glucose (UA) Normal, Urine Ketones 50 H, Urine Occult Blood 10 H, Urine Nitrite Negative, Urine Bilirubin Negative, Urine Urobilinogen 1 H, Ur Leukocyte Esterase 500 H, Urine RBC 0-5 SEEN, Urine WBC 10-25 SEEN, Ur Squamous Epith Cells 0-5 SEEN, Urine Bacteria 3+, Urine Mucus 0 SEEN 04/23/23 05:55: WBC 15.7 H, RBC 4.23, Hgb 12.6, Hct 39.0, MCV 92.2, MCH 29.8, MCHC 32.3, RDW Std Deviation 43.4, RDW Coeff of Nan 12.9, Plt Count 261, MPV 9.5, Immature Gran % (Auto) 0.500, Neut % (Auto) 83.4 H, Lymph % (Auto) 7.4 L, [place] % (Auto) 7.6, Eos % (Auto) 0.8, Baso % (Auto) 0.3, Absolute Neuts (auto) 13.1 H, Absolute Lymphs (auto) 1.16, Nucleated RBC % 0 Radiography Diagnostic Testing: Radiology Impression Abdomen/Pelvis CT 04/22/23 19:05 IMPRESSION: Severe small bowel obstruction with a transition point involving small bowel near the umbilicus with a small amount of free fluid but no evidence of ischemia or perforation. Electronically Signed: Philip Evans MD at 21:02 EDT , ADDENDUM: 04/22/23 8214 IMPRESSION: Severe small bowel obstruction with a transition point involving small bowel near the umbilicus with a small amount of free fluid but no evidence of ischemia or perforation. N.B. : The above Results were Read Back by Philip Evans MD to Jerry Sears MD, and understanding confirmed on 04/22/2023 21:33:24 (ET). Electronically Signed: Philip Evans MD at 21:02 EDT , KUB X-Ray 04/22/23 21:03 IMPRESSION: 1. Nasogastric tube with the tip in the left upper quadrant likely in the body the stomach. 2. Moderate small bowel obstruction. 3. No pneumoperitoneum. Electronically Signed: Philip Evans MD at 21:23 EDT , KUB X-Ray 04/23/23 05:13 IMPRESSION: Small bowel obstruction. Electronically Signed: Brian Chambers DO at 5:38 EDT , Physical Exam Narrative GENERAL: cooperative HEENT: Atraumatic; normocephalic EYES; Anicteric, Normal Conjunctiva NECK; supple, normal thyroid, RESPIRATORY: Diminished to auscultation CARDIOVASCULAR: Regular S1 S2, GI: soft, bowel sounds not appreciated : No Renal angle tenderness; EXTREMITIES: No edema, no clubbing, MUSCULOSKELETAL: no muscle wasting NEURO: Awake; no lateralizing signs. SKIN: No Rash PSYCH; Flat affect Assessment & Plan Assessment/Plan (1) SBO (small bowel obstruction): PLAN: Plan Patient is 63-year-old lady with previous history of partial colectomy who presented with abdominal discomfort and distention. Imaging studies obtained came back consistent with Severe small bowel obstruction with a transition point involving small bowel near the umbilicus with a small amount of free fluid but no evidence of ischemia or perforation. Admitted to regular nursing floor for further management 1. Small bowel obstruction ? Imaging studies obtained did showSevere small bowel obstruction with a transition point involving small bowel near the umbilicus with a small amount of free fluid but no evidence of ischemia or perforation. Admitted to regular nursing floor managed with bowel rest, pain meds, antinausea medication, IV fluids with consultation placed to general surgery 2. Acute cystitis ? Patient started on Rocephin culture sent 3. Hypothyroidism - Patient is on levothyroxine home dose continued 4. Seizure disorder ? Patient is on lamotrigine and zonisamide, held placed on IV Keppra last patient is being kept n.p.o. 5. History of previous intestinal obstruction ? Status of partial colectomy 6. DVT prophylaxis - On enoxaparin Time spent in the patient's overall evaluation,decision-making process, review of diagnostic data, adjustment of management, discussion with other providers, nursing nursing and ancillary staff involved in patient's care documentation, 50 Minutes Charges/Coding Visit Charges Inpatient E&M: [id number] [place] [id number]
--- NOTE | 2023-04-23 08:15 | EKG12_ITS ---
Test Reason : PRE OP Blood Pressure : / mmHG Vent. Rate : 090 BPM Atrial Rate : 090 BPM P-R Int : 182 ms QRS Dur : 090 ms QT Int : 326 ms P-R-T Axes : 059 -13 103 degrees QTc Int : 398 ms Normal sinus rhythm Nonspecific T wave abnormality Abnormal ECG When compared with ECG of 29-SEP-2005 00:44, Nonspecific T wave abnormality, worse in Inferior leads Nonspecific T wave abnormality now evident in Anterolateral leads Confirmed by AMAIRANI GOMEZ, ROGERIO ([id number]), editorial assistant EKTA BAL ([id number]) on 04/26/2023 10:47:37 AM Referred By: JOHANNA Confirmed By:ROGERIO BALES MD
[2023-04-23 08:21] LABS: ALB/GLOB Ratio 1.3 RATIO (0.9-2.4); AST(SGOT) 12 U/L (15-37); Alanine Aminotransfer ALT/SGPT 14 U/L (13-56); Albumin, Serum 3.3 g/dL (3.2-5.0); Alkaline Phosphatase 102 U/L (45-117); Anion Gap 7 (5-15); BUN 11 mg/dL (7-18); BUN/Creat Ratio 16.9 RATIO (10-20); Calcium,Total 8.5 mg/dL (8.5-10.1); Chloride 113 mmol/L (98-107); Creatinine, Serum 0.65 mg/dL (0.55-1.02); EST Glomerular Filtration Rate 98 mL/min (>60); Est Glom Filt Rate - Afr Amer 118 mL/min (>60); Estimated Creatinine Clearance 72.33 ml/min; Globulin 2.6 g/dL (2.2-4.2); Glucose 105 mg/dL (74-106); Potassium 3.5 mmol/L (3.5-5.1); Protein, Total 5.9 g/dL (6.4-8.2); Sodium Level 141 mmol/L (136-145)
[2023-04-23 09:55] LABS: Partial Thromboplast Time 25.4 Seconds (24.1-36.2)
--- NOTE | 2023-04-23 10:05 | CASEMGMT ---
DELROY HUBBARD Discharge Planning Assessment: Face to Face with patient for initial transition planning/care coordination assessment.?DELROY HUBBARD introduced self and role at [facility], pt alert, answering questions appropriately, voices understanding and is agreeable to participating in assessment.? Care providers, pharmacy,?and demographics verified. ? Admitting dx: Bowel obstruction, UTI PCP: Older Specialists: OLESYA neurologist Preferred Pharmacy: [facility] Insurance: [employer] Prescription Benefit:?yes LNOK: spouse Silvino Living Arrangements: Pt lives with spouse in a two story home. Pt denies any difficulty with steps and states she is independent with all ADLs including self care and household tasks. Transportation: pt does not drive d/t seizure disorder and has assistance with transportation from her spouse, friends and family DME/HHC/SNF: pt denies ? Plan: Pt plans to return home at discharge and denies any needs at this time. Will continue to monitor pt's clinical progression and will assist with any discharge needs as identified. Peterson Garner RN CM
--- NOTE | 2023-04-23 15:54 | PCM.OPRPT ---
Report of Operation Date of Procedure: 04/23/23 Pre-Operative Diagnosis: Small bowel obstruction Post-Operative Diagnosis: Small bowel obstruction due to adhesions Surgery/Procedure Performed:: Diagnostic laparoscopy converted to laparotomy, lysis of adhesions and release of small bowel obstruction Surgeon: Lynda Wan stock unloader: Dara Singh Type of Anesthesia: General/Supplemental Anesthesiologist: Wayne Briceño Special Medications: Cefotetan 2 g IV x1 Specimen's removed: None Drains: parker placed-250 cc Estimated Blood Loss (mL): <10 cc Fluids Replaced: 1200 cc Description of Procedure: Patient brought into the operating placed spine on operating table. Timeout was completed verifying correct patient, procedure, site, positioning, special equipment prior to beginning procedure. General anesthesia was induced. Parker catheter was placed. Abdomen was prepped and draped in usual sterile fashion with chlorhexidine. Supraumbilical incision was made with a 15 blade scalpel and deepened to the fascia. Fascia was elevated and incised with Metzenbaum scissors. Entry into the abdomen was confirmed visually with no injury upon entry. Vaca trocar was placed. Abdomen was insufflated to 12 to 15 mmHg. Patient tolerated insufflation well. Laparoscope was placed and noted to have an adhesion just right/inferior to the umbilicus with causing a tight turn in the bowel. Due to this tight adhesion decided to convert to laparotomy. Midline incision was made with 10 blade scalpel deepened with electrocautery to the fascia. Fascia was incised with Metzenbaum scissors. Adhesion was carefully lysed using scissors. Small bowel was ran distally to confirm there was no other site of adhesions. Some of the semisolid small bowel contents were able to be milked through the area of transition to decompressed bowel. Due to the heavy/dilated small bowel proximally this bowel was not ran. Serous fluid was suctioned from the abdomen. Fascia was closed with 0 PDS running suture. Wound was irrigated with saline. Skin was closed with running 4-0 Monocryl suture. Telfa and OpSite placed over incision. Patient was extubated. Patient tolerated procedure well was taken to the postanesthesia care unit in stable condition. Complications none
[2023-04-23] MEDS: Bupivacaine 0.25% 30 ML Vial (16:00)
[2023-04-23] MEDS: BENZOCAINE/MENTHOL 1 LOZENGE MUCOUS MEM (17:57)
[2023-04-23] MEDS: Ceftriaxone 1 GM/50 ML BAG IV (22:13)
[2023-04-24 03:03] VITALS: BP 114/71; PULSE 88; RESP 16; TEMP 36.8; O2SAT 97
[2023-04-24] MEDS: Morphine 2 MG/ML Syringe IV ×2 (03:23→22:01)
[2023-04-24 06:00] VITALS: BMI 22.1
[2023-04-24 06:37] LABS: Absolute Lymphocyte Count 1.76 X10^3/uL (0.83-4.51); Absolute Neutrophil Count 3.8 X10^3/uL (2.0-7.7); Basophil# 0.02 X10^3/uL; Basophil% 0.3 % (0-1); Eosinophil# 0.08 X10^3/uL; Eosinophils% 1.2 % (0-5); Hematocrit 35.3 % (37-47); Hemoglobin 11.6 g/dL (12.0-15.0); Lymphocyte # 1.76 X10^3/ul (0.83-4.51); Lymphocyte % 26.5 % (19-41); Mean Corp Hgb Conc 32.9 g/dL (32-36); Mean Corpuscular Hgb 30.9 pg (27.0-32.0); Mean Corpuscular Volume 94.1 fL (81-99); Mean Platelet Vol. 9.5 fl (6.2-12.0); Monocyte% 15.1 % (0-10); NRBC Flagged by Analyzer 0 % (0-5); Neutrophil # 3.77 X10^3/uL (2.7-7.7); Neutrophil % 56.7 % (47-70); Platelet Count 233 K/mm3 (150-450); RBC Distribution Width CV 13.2 % (11.6-14.6); RBC Distribution Width SD 45.2 fl (35.1-43.9); Red Blood Count 3.75 M/mm3 (4.2-5.4); White Blood Count 6.6 K/mm3 (4.4-11.0)
[2023-04-24 06:59] LABS: Anion Gap 6 (5-15); BUN 10 mg/dL (7-18); BUN/Creat Ratio 14.2 RATIO (10-20); Calcium,Total 8.1 mg/dL (8.5-10.1); Chloride 113 mmol/L (98-107); EST Glomerular Filtration Rate 89 mL/min (>60); Est Glom Filt Rate - Afr Amer 108 mL/min (>60); Estimated Creatinine Clearance 67.16 ml/min; Glucose 76 mg/dL (74-106); Potassium 3.8 mmol/L (3.5-5.1); Sodium Level 142 mmol/L (136-145)
--- NOTE | 2023-04-24 07:40 | PN.HOSP_ITS ---
Reason for Visit Reason for Visit: Diagnoses Unspecified intestinal obstruction, unspecified as to partial versus complete o bstruction (04/22/23) Urinary tract infection, site not specified (04/22/23) Subjective Subjective Patient underwent diagnostic laparoscopy converted to laparotomy, lysis of adhesions and release of small bowel obstruction on 04/23/[address] Wan Objective Data Objective Data Vital Signs: Vital Signs Temp Pulse Resp BP Pulse Ox O2 Del Method 98.2 F 88 16 114/71 97 Room Air 04/24/23 03:03 04/24/23 03:03 04/24/23 03:03 04/24/23 03:03 04/24/23 03:03 04/24/23 03:03 Oxygen Delivery Method Room Air Weight: 56.699 kg Body Mass Index (BMI) 22.1 Intake & Output: Intake and Output for Last 24 Hours 04/22/23 04/23/23 04/24/23 23:59 23:59 23:59 Intake Total 1000 / 1000 3121.66 / 3121.66 120 / 120 Output Total 675 / 675 450 / 450 Balance 1000 / 1000 2446.66 / 2446.66 -330 / -330 Lab / Micro Data 04/24/23 06:01 04/24/23 06:01 Labs: Laboratory Results - last 24 hr 04/23/23 05:55: Sodium 141, Potassium 3.5, Chloride 113 H, Carbon Dioxide 21.0, Anion Gap 7, BUN 11, Creatinine 0.65, Estim Creat Clear Calc 72.33, Est GFR (MDRD) Af Amer 118, Est GFR (MDRD) Non-Af 98, BUN/Creatinine Ratio 16.9, Glucose 105, Calcium 8.5, Total Bilirubin 0.50, AST 12 L, ALT 14, Alkaline Phosphatase 102, Total Protein 5.9 L, Albumin 3.3, Globulin 2.6, Albumin/Globulin Ratio 1.3, TSH 5.70 H 04/23/23 09:30: APTT 25.4 04/24/23 06:01: WBC 6.6, RBC 3.75 L, Hgb 11.6 L, Hct 35.3 L, MCV 94.1, MCH 30.9, MCHC 32.9, RDW Std Deviation 45.2 H, RDW Coeff of Nan 13.2, Plt Count 233, MPV 9.5, Immature Gran % (Auto) 0.200, Neut % (Auto) 56.7, Lymph % (Auto) 26.5, [place] % (Auto) 15.1 H, Eos % (Auto) 1.2, Baso % (Auto) 0.3, Absolute Neuts (auto) 3.8, Absolute Lymphs (auto) 1.76, Nucleated RBC % 0, Sodium 142, Potassium 3.8, Chloride 113 H, Carbon Dioxide 23.0, Anion Gap 6, BUN 10, Creatinine 0.70, Estim Creat Clear Calc 67.16, Est GFR (MDRD) Af Amer 108, Est GFR (MDRD) Non-Af 89, BUN/Creatinine Ratio 14.2, Glucose 76, Calcium 8.1 L, Phosphorus 3.0, Magnesium 2.0 Micro: Microbiology 04/22/23 20:40 Urine, Clean Catch Urine Culture - Preliminary 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 SKIN: No Rash PSYCH; Flat affect Assessment & Plan Assessment/Plan (1) SBO (small bowel obstruction): PLAN: Plan Patient is 63-year-old lady with previous history of partial colectomy who presented with abdominal discomfort and distention. Imaging studies obtained came back consistent with Severe small bowel obstruction with a transition point involving small bowel near the umbilicus with a small amount of free fluid but no evidence of ischemia or perforation. Admitted to regular nursing floor for further management 1. Small bowel obstruction ? Imaging studies obtained did showSevere small bowel obstruction with a transition point involving small bowel near the umbilicus with a small amount of free fluid but no evidence of ischemia or perforation. Admitted to regular nursing floor managed with bowel rest, pain meds, antinausea medication, IV fluids with consultation placed to general surgery ? 04/24/2023;Patient underwent diagnostic laparoscopy converted to laparotomy, lysis of adhesions and release of small bowel obstruction on 04/23/[address] Wan 2. Acute cystitis ? Patient started on Rocephin culture sent 3. Hypothyroidism - Patient is on levothyroxine home dose continued 4. Seizure disorder ? Patient is on lamotrigine and zonisamide, held placed on IV Keppra last patient is being kept n.p.o. 5. History of previous intestinal obstruction ? Status of partial colectomy 6. DVT prophylaxis - On enoxaparin Time spent in the patient's overall evaluation,decision-making process, review of diagnostic data, adjustment of management, discussion with other providers, nursing nursing and ancillary staff involved in patient's care documentation, 50 Minutes Charges/Coding Visit Charges Inpatient E&M: 54902 [facility] L3
[2023-04-24 08:06] VITALS: O2SAT 95
--- NOTE | 2023-04-24 08:43 | PN.SURG_ITS ---
Subjective Subjective Patient reports he is comfortable. She is not passing flatus yet but she thinks she feels things moving. She is not nauseated. Her pain is well controlled. Objective Data Objective Data Vital Signs: Vital Signs Temp Pulse Resp BP Pulse Ox O2 Del Method 98.2 F 88 16 114/71 95 Room Air 04/24/23 03:03 04/24/23 03:03 04/24/23 03:03 04/24/23 03:03 04/24/23 08:06 04/24/23 08:06 Oxygen Delivery Method Room Air Weight: 125 lb Body Mass Index (BMI) 22.1 Intake & Output: Intake and Output for Last 24 Hours 04/22/23 04/23/23 04/24/23 23:59 23:59 23:59 Intake Total 1000 / 1000 3121.66 / 3121.66 120 / 120 Output Total 675 / 675 450 / 450 Balance 1000 / 1000 2446.66 / 2446.66 -330 / -330 Lab / Micro Data 04/24/23 06:01 04/24/23 06:01 Labs: Laboratory Results - last 24 hr 04/23/23 05:55: TSH 5.70 H 04/23/23 09:30: APTT 25.4 04/24/23 06:01: WBC 6.6, RBC 3.75 L, Hgb 11.6 L, Hct 35.3 L, MCV 94.1, MCH 30.9, MCHC 32.9, RDW Std Deviation 45.2 H, RDW Coeff of Nan 13.2, Plt Count 233, MPV 9.5, Immature Gran % (Auto) 0.200, Neut % (Auto) 56.7, Lymph % (Auto) 26.5, [place] % (Auto) 15.1 H, Eos % (Auto) 1.2, Baso % (Auto) 0.3, Absolute Neuts (auto) 3.8, Absolute Lymphs (auto) 1.76, Nucleated RBC % 0, Sodium 142, Potassium 3.8, Chloride 113 H, Carbon Dioxide 23.0, Anion Gap 6, BUN 10, Creatinine 0.70, Estim Creat Clear Calc 67.16, Est GFR (MDRD) Af Amer 108, Est GFR (MDRD) Non-Af 89, BUN/Creatinine Ratio 14.2, Glucose 76, Calcium 8.1 L, Phosphorus 3.0, Magnesium 2.0 Micro: Microbiology 04/22/23 20:40 Urine, Clean Catch Urine Culture - Preliminary 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 Continue NG until she is passing flatus. Continue IV fluids. Frank Seo MD Pager: [facility] [address] [place] [address], [address] [place] [address] Office:
[2023-04-24 08:49] VITALS: BP 116/74; PULSE 88; RESP 16; TEMP 36.8; O2SAT 94
[2023-04-24] MEDS: Enoxaparin 40 MG/0.4 ML Syringe SC (11:26)
[2023-04-24] MEDS: 0.9% Normal Saline 1,000 ML 100 ML IV ×2 (12:48→23:01)
[2023-04-24] MEDS: oxyCODONE 5 MG Tablet PO (12:48)
[2023-04-24 15:00] VITALS: BP 122/76; PULSE 92; RESP 16; TEMP 36.8; O2SAT 95
[2023-04-24 22:07] VITALS: BP 127/84; PULSE 93; RESP 94; TEMP 37.3; O2SAT 16
[2023-04-24] MEDS: Ceftriaxone 1 GM/50 ML BAG IV (22:58)
[2023-04-25] VITALS (8 sets, daily range): BP systolic 120–140; BP diastolic 70–84; PULSE 78–84; RESP 16–18; TEMP 36.6–36.8; O2SAT 95–98; BMI 22.0; BMI 22.1
[2023-04-25] MEDS: Morphine 2 MG/ML Syringe IV ×2 (04:35→22:15)
[2023-04-25 06:08] LABS: Absolute Lymphocyte Count 2.03 X10^3/uL (0.83-4.51); Absolute Neutrophil Count 4.1 X10^3/uL (2.0-7.7); Basophil# 0.04 X10^3/uL; Basophil% 0.6 % (0-1); Eosinophil# 0.16 X10^3/uL; Eosinophils% 2.2 % (0-5); Hematocrit 35.5 % (37-47); Hemoglobin 11.4 g/dL (12.0-15.0); Lymphocyte # 2.03 X10^3/ul (0.83-4.51); Lymphocyte % 28.2 % (19-41); Mean Corp Hgb Conc 32.1 g/dL (32-36); Mean Corpuscular Hgb 29.9 pg (27.0-32.0); Mean Corpuscular Volume 93.2 fL (81-99); Mean Platelet Vol. 9.4 fl (6.2-12.0); Monocyte# 0.87 X10^3/uL; Monocyte% 12.1 % (0-10); NRBC Flagged by Analyzer 0 % (0-5); Neutrophil # 4.06 X10^3/uL (2.7-7.7); Neutrophil % 56.5 % (47-70); Platelet Count 229 K/mm3 (150-450); RBC Distribution Width CV 12.8 % (11.6-14.6); RBC Distribution Width SD 43.9 fl (35.1-43.9); Red Blood Count 3.81 M/mm3 (4.2-5.4); White Blood Count 7.2 K/mm3 (4.4-11.0)
[2023-04-25 06:36] LABS: Anion Gap 9 (5-15); BUN 10 mg/dL (7-18); BUN/Creat Ratio 23.3 RATIO (10-20); Chloride 112 mmol/L (98-107); Creatinine, Serum 0.43 mg/dL (0.55-1.02); EST Glomerular Filtration Rate 158 mL/min (>60); Est Glom Filt Rate - Afr Amer 191 mL/min (>60); Estimated Creatinine Clearance 109.34 ml/min; Glucose 73 mg/dL (74-106); Potassium 3.4 mmol/L (3.5-5.1); Sodium Level 140 mmol/L (136-145)
--- NOTE | 2023-04-25 07:28 | PCM.PN.HOSP ---
Reason for Visit Reason for Visit: Diagnoses Unspecified intestinal obstruction, unspecified as to partial versus complete obstruction (04/22/23) Urinary tract infection, site not specified (04/22/23) Subjective Subjective Postoperative day 2 following laparotomy for small bowel obstruction secondary to adhesions. Diagnostic data reviewed significant for potassium of 3.4 additional replacement given. Patient reports no flatus Objective Data Objective Data Vital Signs: Vital Signs Temp Pulse Resp BP Pulse Ox O2 Del Method 97.8 F 84 16 124/81 H 95 Room Air 04/25/23 04:00 04/25/23 04:00 04/25/23 04:00 04/25/23 04:00 04/25/23 04:00 04/25/23 04:00 Oxygen Delivery Method Room Air Weight: 56.5 kg Body Mass Index (BMI) 22.0 Intake & Output: Intake and Output for Last 24 Hours 04/23/23 04/24/23 04/25/23 23:59 23:59 23:59 Intake Total 3121.66 / 3121.66 2636.67 / 2636.67 60 / 60 Output Total 675 / 675 500 / 550 150 / 150 Balance 2446.66 / 2446.66 2136.67 / 2086.67 -90 / -90 Lab / Micro Data 04/25/23 05:37 04/25/23 05:37 Labs: Laboratory Results - last 24 hr 04/25/23 05:37: WBC 7.2, RBC 3.81 L, Hgb 11.4 L, Hct 35.5 L, MCV 93.2, MCH 29.9, MCHC 32.1, RDW Std Deviation 43.9, RDW Coeff of Nan 12.8, Plt Count 229, MPV 9.4, Immature Gran % (Auto) 0.400, Neut % (Auto) 56.5, Lymph % (Auto) 28.2, [place] % (Auto) 12.1 H, Eos % (Auto) 2.2, Baso % (Auto) 0.6, Absolute Neuts (auto) 4.1, Absolute Lymphs (auto) 2.03, Nucleated RBC % 0, Sodium 140, Potassium 3.4 L, Chloride 112 H, Carbon Dioxide 19.0 L, Anion Gap 9, BUN 10, Creatinine 0.43 L, Estim Creat Clear Calc 109.34, Est GFR (MDRD) Af Amer 191, Est GFR (MDRD) Non-Af 158, BUN/Creatinine Ratio 23.3 H, Glucose 73 L, Calcium 8.0 L Micro: Microbiology 04/22/23 20:40 Urine, Clean Catch Urine Culture - Preliminary Presumptive E. coli Physical Exam Narrative GENERAL: cooperative HEENT: Atraumatic; normocephalic EYES; Anicteric, Normal Conjunctiva NECK; supple, normal thyroid, RESPIRATORY: Diminished to auscultation CARDIOVASCULAR: Regular S1 S2, GI: soft, bowel sounds not appreciated : No Renal angle tenderness; EXTREMITIES: No edema, no clubbing, MUSCULOSKELETAL: no muscle wasting NEURO: Awake; no lateralizing signs. SKIN: No Rash PSYCH; Flat affect Assessment & Plan Assessment/Plan (1) SBO (small bowel obstruction): PLAN: Plan Patient is 63-year-old lady with previous history of partial colectomy who presented with abdominal discomfort and distention. Imaging studies obtained came back consistent with Severe small bowel obstruction with a transition point involving small bowel near the umbilicus with a small amount of free fluid but no evidence of ischemia or perforation. Admitted to regular nursing floor for further management 1. Small bowel obstruction ? Imaging studies obtained did showSevere small bowel obstruction with a transition point involving small bowel near the umbilicus with a small amount of free fluid but no evidence of ischemia or perforation. Admitted to regular nursing floor managed with bowel rest, pain meds, antinausea medication, IV fluids with consultation placed to general surgery ? 04/24/2023;Patient underwent diagnostic laparoscopy converted to laparotomy, lysis of adhesions and release of small bowel obstruction on 04/23/[address] Wan ? 04/25/2023 postoperative day 2 patient pain is tolerable 2. Acute cystitis with E. coli ? Patient started on Rocephin culture sent ? 04/25/2023 urine cultures positive for E. coli final sensitivities pending 3. Hypokalemia ? Corrected per protocol repeat labs ordered for a.m. 4. Hypothyroidism - Patient is on levothyroxine home dose continued 5. Seizure disorder ? Patient is on lamotrigine and zonisamide, held placed on IV Keppra last patient is being kept n.p.o. 6 History of previous intestinal obstruction ? Status of partial colectomy 7. DVT prophylaxis - On enoxaparin Time spent in the patient's overall evaluation,decision-making process, review of diagnostic data, adjustment of management, discussion with other providers, nursing nursing and ancillary staff involved in patient's care documentation,35 Minutes Charges/Coding Visit Charges Inpatient E&M: 07256 Subs Hosp L2
--- NOTE | 2023-04-25 08:56 | PCM.PN.SRG ---
Subjective Subjective The patient still denies any flatus. Her abdominal pain is tolerable. Objective Data Objective Data Vital Signs: Vital Signs Temp Pulse Resp BP Pulse Ox O2 Del Method 98.2 F 79 18 120/76 96 Room Air 04/25/23 08:29 04/25/23 08:29 04/25/23 08:29 04/25/23 08:29 04/25/23 08:29 04/25/23 08:29 Oxygen Delivery Method Room Air Weight: 124 lb 8.979 oz Body Mass Index (BMI) 22.0 Intake & Output: Intake and Output for Last 24 Hours 04/23/23 04/24/23 04/25/23 23:59 23:59 23:59 Intake Total 3121.66 / 3121.66 2636.67 / 2636.67 60 / 60 Output Total 675 / 675 500 / 550 150 / 150 Balance 2446.66 / 2446.66 2136.67 / 2086.67 -90 / -90 Lab / Micro Data 04/25/23 05:37 04/25/23 05:37 Labs: Laboratory Results - last 24 hr 04/25/23 05:37: WBC 7.2, RBC 3.81 L, Hgb 11.4 L, Hct 35.5 L, MCV 93.2, MCH 29.9, MCHC 32.1, RDW Std Deviation 43.9, RDW Coeff of Nan 12.8, Plt Count 229, MPV 9.4, Immature Gran % (Auto) 0.400, Neut % (Auto) 56.5, Lymph % (Auto) 28.2, [place] % (Auto) 12.1 H, Eos % (Auto) 2.2, Baso % (Auto) 0.6, Absolute Neuts (auto) 4.1, Absolute Lymphs (auto) 2.03, Nucleated RBC % 0, Sodium 140, Potassium 3.4 L, Chloride 112 H, Carbon Dioxide 19.0 L, Anion Gap 9, BUN 10, Creatinine 0.43 L, Estim Creat Clear Calc 109.34, Est GFR (MDRD) Af Amer 191, Est GFR (MDRD) Non-Af 158, BUN/Creatinine Ratio 23.3 H, Glucose 73 L, Calcium 8.0 L Micro: Microbiology 04/22/23 20:40 Urine, Clean Catch Urine Culture - Preliminary Presumptive E. coli Physical Exam Const oriented x3 Resp normal respiratory effort Cardio regular rate and regular rhythm GI soft to palpation Inspection: abdominal distention Palpation: tender Assessment & Plan Assessment/Plan (1) SBO (small bowel obstruction): PLAN: The patient had very little output from her NG tube. She is very uncomfortable so I will least remove the NG tube and I will keep her n.p.o. until she starts passing flatus. She has normal active bowel sounds per nursing. (2) UTI (urinary tract infection): PLAN: The patient has UTI which is sensitive to cephalosporins. She is on ceftriaxone. Frank Seo MD Pager: [facility] [address] [place] [address], [address] [place] [address] Office:
[2023-04-25] MEDS: 0.9% Normal Saline 1,000 ML 100 ML IV ×2 (10:48→22:21)
[2023-04-25] MEDS: Enoxaparin 40 MG/0.4 ML Syringe SC (10:49)
--- NOTE | 2023-04-25 18:48 | NURSING ---
4040 patient stated passed small amount of gas. Jose Dudley RN
--- NOTE | 2023-04-25 18:49 | NURSING ---
184 noted bowel sounds faint in 4 quads. abdomen noted less distention. will monitor Jose Dudley RN
[2023-04-25] MEDS: Ceftriaxone 1 GM/50 ML BAG IV (23:02)
[2023-04-26 05:00] VITALS: BP 117/78; PULSE 76; RESP 16; TEMP 36.8; O2SAT 97
[2023-04-26 06:00] VITALS: BMI 21.7
[2023-04-26 06:18] LABS: Absolute Lymphocyte Count 1.98 X10^3/uL (0.83-4.51); Absolute Neutrophil Count 5.4 X10^3/uL (2.0-7.7); Basophil# 0.05 X10^3/uL; Basophil% 0.6 % (0-1); Eosinophils% 3.5 % (0-5); Hematocrit 34.6 % (37-47); Hemoglobin 11.5 g/dL (12.0-15.0); Lymphocyte # 1.98 X10^3/ul (0.83-4.51); Lymphocyte % 23.2 % (19-41); Mean Corp Hgb Conc 33.2 g/dL (32-36); Mean Corpuscular Hgb 30.7 pg (27.0-32.0); Mean Corpuscular Volume 92.3 fL (81-99); Mean Platelet Vol. 9.4 fl (6.2-12.0); Monocyte# 0.73 X10^3/uL; Monocyte% 8.5 % (0-10); NRBC Flagged by Analyzer 0 % (0-5); Neutrophil # 5.44 X10^3/uL (2.7-7.7); Neutrophil % 63.7 % (47-70); Platelet Count 248 K/mm3 (150-450); RBC Distribution Width CV 12.7 % (11.6-14.6); RBC Distribution Width SD 42.7 fl (35.1-43.9); Red Blood Count 3.75 M/mm3 (4.2-5.4); White Blood Count 8.5 K/mm3 (4.4-11.0)
--- NOTE | 2023-04-26 06:50 | PCM.PN.SRG ---
Subjective Subjective Patient n.p.o., flatus x1, more incisional abdominal pain. Objective Data Objective Data Vital Signs: Vital Signs Temp Pulse Resp BP Pulse Ox O2 Del Method 98.3 F 76 16 117/78 97 Room Air 04/26/23 05:00 04/26/23 05:00 04/26/23 05:00 04/26/23 05:00 04/26/23 05:00 04/26/23 05:00 Oxygen Delivery Method Room Air Weight: 122 lb 5 oz Body Mass Index (BMI) 21.7 Intake & Output: Intake and Output for Last 24 Hours 04/24/23 04/25/23 04/26/23 23:59 23:59 23:59 Intake Total 2636.67 / 2636.67 3540 / 3540 Output Total 500 / 550 1150 / 1150 1000 / 1000 Balance 2136.67 / 2086.67 2390 / 2390 -1000 / -1000 Lab / Micro Data 04/26/23 05:45 04/26/23 05:45 Labs: Laboratory Results - last 24 hr 04/26/23 05:45: WBC 8.5, RBC 3.75 L, Hgb 11.5 L, Hct 34.6 L, MCV 92.3, MCH 30.7, MCHC 33.2, RDW Std Deviation 42.7, RDW Coeff of Nan 12.7, Plt Count 248, MPV 9.4, Immature Gran % (Auto) 0.500, Neut % (Auto) 63.7, Lymph % (Auto) 23.2, [place] % (Auto) 8.5, Eos % (Auto) 3.5, Baso % (Auto) 0.6, Absolute Neuts (auto) 5.4, Absolute Lymphs (auto) 1.98, Nucleated RBC % 0 Micro: Microbiology 04/22/23 20:40 Urine, Clean Catch Urine Culture - Preliminary Presumptive E. coli Physical Exam Const oriented x3 Resp normal respiratory effort Cardio regular rate GI soft to palpation GI Narrative: Tender near incision incision clean dry intact with Steri-Strips, no peritoneal signs, mild distention Assessment & Plan Assessment/Plan (1) Status post laparoscopy with lysis of adhesions: (2) SBO (small bowel obstruction): (3) UTI (urinary tract infection): PLAN: Plan Patient still n.p.o., good urine output will decrease IV fluids. Patient's only had flatus times once with increased flatus will advance to clears. Lynda Wan M.D. Pager: [phone] [facility] [address] [place] [address], [address] [place] [id number] Office: [phone]
[2023-04-26 06:51] LABS: Anion Gap 8 (5-15); BUN 8 mg/dL (7-18); BUN/Creat Ratio 14.6 RATIO (10-20); Calcium,Total 8.4 mg/dL (8.5-10.1); Chloride 108 mmol/L (98-107); Creatinine, Serum 0.55 mg/dL (0.55-1.02); EST Glomerular Filtration Rate 119 mL/min (>60); Est Glom Filt Rate - Afr Amer 144 mL/min (>60); Estimated Creatinine Clearance 85.48 ml/min; Glucose 56 mg/dL (74-106); Potassium 3.3 mmol/L (3.5-5.1); Sodium Level 139 mmol/L (136-145)
[2023-04-26 07:09] VITALS: O2SAT 98
--- NOTE | 2023-04-26 07:32 | PCM.PN.HOSP ---
Reason for Visit Reason for Visit: Diagnoses Unspecified intestinal obstruction, unspecified as to partial versus complete obstruction (04/22/23) Urinary tract infection, site not specified (04/22/23) Other specified postprocedural states (04/22/23) Subjective Subjective Still some abdominal pain but is beginning to pass gas, has been up moving around, no nausea or vomiting Objective Data Objective Data Vital Signs: Vital Signs Temp Pulse Resp BP Pulse Ox O2 Del Method 98.3 F 76 16 117/78 98 Room Air 04/26/23 05:00 04/26/23 05:00 04/26/23 05:00 04/26/23 05:00 04/26/23 07:09 04/26/23 07:09 Oxygen Delivery Method Room Air Weight: 55.48 kg Body Mass Index (BMI) 21.7 Intake & Output: Intake and Output for Last 24 Hours 04/24/23 04/25/23 04/26/23 23:59 23:59 23:59 Intake Total 2636.67 / 2636.67 3540 / 3540 Output Total 500 / 550 1150 / 1150 1000 / 1000 Balance 2136.67 / 2086.67 2390 / 2390 -1000 / -1000 Lab / Micro Data 04/26/23 05:45 04/26/23 05:45 Labs: Laboratory Results - last 24 hr 04/26/23 05:45: WBC 8.5, RBC 3.75 L, Hgb 11.5 L, Hct 34.6 L, MCV 92.3, MCH 30.7, MCHC 33.2, RDW Std Deviation 42.7, RDW Coeff of Nan 12.7, Plt Count 248, MPV 9.4, Immature Gran % (Auto) 0.500, Neut % (Auto) 63.7, Lymph % (Auto) 23.2, [place] % (Auto) 8.5, Eos % (Auto) 3.5, Baso % (Auto) 0.6, Absolute Neuts (auto) 5.4, Absolute Lymphs (auto) 1.98, Nucleated RBC % 0, Sodium 139, Potassium 3.3 L, Chloride 108 H, Carbon Dioxide 23.0, Anion Gap 8, BUN 8, Creatinine 0.55, Estim Creat Clear Calc 85.48, Est GFR (MDRD) Af Amer 144, Est GFR (MDRD) Non-Af 119, BUN/Creatinine Ratio 14.6, Glucose 56 L, Calcium 8.4 L Micro: Microbiology 04/22/23 20:40 Urine, Clean Catch Urine Culture - Preliminary Presumptive E. coli Physical Exam Narrative General: Alert, oriented, no apparent distress HEENT: Atraumatic, normocephalic Eyes: Anicteric, normal conjunctiva, extraocular movements grossly intact Neck: Supple Respiratory: Clear to auscultation bilaterally, normal respiratory effort Cardiovascular: Regular rate and rhythm GI: Fairly soft, hypoactive bowel sounds, is tender Extremities: No edema Musculoskeletal: Moving all extremities Neuro: No overt focal neurological deficits Skin: No rashes appreciated Psych: Cooperative Assessment & Plan Assessment/Plan (1) Status post laparoscopy with lysis of adhesions: (2) SBO (small bowel obstruction): PLAN: Plan #Small bowel obstruction status post laparoscopy with lysis of adhesions 04/23 -On admission imaging with severe small bowel obstruction with transition point near umbilicus and small amount of free fluid but no evidence of ischemia or perforation -Patient underwent diagnostic laparoscopy converted to laparotomy, lysis of adhesions and release of small bowel obstruction on 04/23/[address] Wan -Patient still n.p.o. but due to very little output from NG and her discomfort this was removed, minimal flatus, surgery following and will advance to clears once having increase flatus -IVF decreased as urine output good -Pain control #Urinary tract infection and acute cystitis secondary to E. coli -Sensitive to cephalosporins -Continue Rocephin #Hypokalemia -Continue to replace #Seizure disorder -Oral meds have been held due to bowel obstruction and continued lack of bowel movements -Is on IV Keppra -On Lamictal and zonisamide at home -Has not received Lamictal since 04/22, will need to monitor amount of days without Lamictal as titration may need to be resumed or may need to be started at lower dose pending how long this has to be held #Hypothyroidism -Continue Synthroid when possible #DVT ppx: Lovenox subcu Galilea Starr MD Time spent in the patient's overall evaluation,decision-making process, review of diagnostic data, adjustment of management, discussion with other providers, nursing nursing and ancillary staff involved in patient's care documentation, 36 minutes Charges/Coding Visit Charges Inpatient E&M: 25431 Subs Hosp L2
[2023-04-26 08:20] VITALS: BP 131/85; PULSE 73; RESP 18; TEMP 36.6; O2SAT 97
[2023-04-26] MEDS: Enoxaparin 40 MG/0.4 ML Syringe SC (08:21)
[2023-04-26] MEDS: Potassium Chloride 10mEq/100mL 10 MEQ/100 ML IV.SOLN. 100 MEQ IV BOLUS ×2 (08:21→09:30)
[2023-04-26] MEDS: 0.9% Normal Saline 1,000 ML 80 ML IV ×2 (09:30→21:55)
[2023-04-26 14:10] VITALS: BP 120/82; PULSE 87; RESP 18; TEMP 36.7; O2SAT 98
[2023-04-26 20:07] LABS: Lamotrigine (Lamictal) Level 5.6 ug/mL (2.0-20.0)
[2023-04-26 20:48] VITALS: BP 133/87; PULSE 74; RESP 16; TEMP 36.9; O2SAT 99
[2023-04-26] MEDS: 0.9% Saline Lock 10 ML Syringe IV (20:51)
[2023-04-26] MEDS: Ceftriaxone 1 GM/50 ML BAG IV (21:59)
[2023-04-26] MEDS: Acetaminophen 325 MG Tablet 650 MG PO (22:59)
[2023-04-26] MEDS: oxyCODONE 5 MG Tablet PO (22:59)
[2023-04-27 03:13] VITALS: BMI 21.4
[2023-04-27 04:00] VITALS: BP 108/72; PULSE 71; RESP 18; TEMP 36.8; O2SAT 97
[2023-04-27 06:59] LABS: Absolute Lymphocyte Count 1.57 X10^3/uL (0.83-4.51); Absolute Neutrophil Count 4.1 X10^3/uL (2.0-7.7); Basophil# 0.04 X10^3/uL; Basophil% 0.6 % (0-1); Eosinophil# 0.28 X10^3/uL; Eosinophils% 4.3 % (0-5); Hematocrit 33.9 % (37-47); Hemoglobin 11.1 g/dL (12.0-15.0); Lymphocyte # 1.57 X10^3/ul (0.83-4.51); Lymphocyte % 24.1 % (19-41); Mean Corp Hgb Conc 32.7 g/dL (32-36); Mean Corpuscular Hgb 29.7 pg (27.0-32.0); Mean Corpuscular Volume 90.6 fL (81-99); Mean Platelet Vol. 9.3 fl (6.2-12.0); Monocyte% 7.7 % (0-10); NRBC Flagged by Analyzer 0 % (0-5); Neutrophil % 62.8 % (47-70); Platelet Count 250 K/mm3 (150-450); RBC Distribution Width CV 12.5 % (11.6-14.6); Red Blood Count 3.74 M/mm3 (4.2-5.4); White Blood Count 6.5 K/mm3 (4.4-11.0)
--- NOTE | 2023-04-27 07:10 | PCM.PN.HOSP ---
Reason for Visit Reason for Visit: Diagnoses Unspecified intestinal obstruction, unspecified as to partial versus complete obstruction (04/22/23) Urinary tract infection, site not specified (04/22/23) Other specified postprocedural states (04/22/23) Subjective Subjective Tolerating advancing diet, abd pain around the same, passing gas but no BM yet Objective Data Objective Data Vital Signs: Vital Signs Temp Pulse Resp BP Pulse Ox O2 Del Method 98.2 F 71 18 108/72 97 Room Air 04/27/23 04:00 04/27/23 04:00 04/27/23 04:00 04/27/23 04:00 04/27/23 04:00 04/27/23 04:00 Oxygen Delivery Method Room Air Weight: 54.885 kg Body Mass Index (BMI) 21.4 Intake & Output: Intake and Output for Last 24 Hours 04/25/23 04/26/23 04/27/23 23:59 23:59 23:59 Intake Total 3540 / 3540 2993.33 / 2993.33 Output Total 1150 / 1150 1000 / 1000 Balance 2390 / 2390 1993.33 / 1992.33 Lab / Micro Data 04/27/23 06:20 04/27/23 06:20 Labs: Laboratory Results - last 24 hr 04/23/23 09:30: Lamotrigine 5.6 04/27/23 06:20: WBC 6.5, RBC 3.74 L, Hgb 11.1 L, Hct 33.9 L, MCV 90.6, MCH 29.7, MCHC 32.7, RDW Std Deviation 41.0, RDW Coeff of Nan 12.5, Plt Count 250, MPV 9.3, Immature Gran % (Auto) 0.500, Neut % (Auto) 62.8, Lymph % (Auto) 24.1, [place] % (Auto) 7.7, Eos % (Auto) 4.3, Baso % (Auto) 0.6, Absolute Neuts (auto) 4.1, Absolute Lymphs (auto) 1.57, Nucleated RBC % 0 Micro: Microbiology 04/22/23 20:40 Urine, Clean Catch Urine Culture - Final Presumptive E. coli Streptococcus group C Physical Exam Narrative General: Alert, oriented, no apparent distress HEENT: Atraumatic, normocephalic Eyes: Anicteric, normal conjunctiva, extraocular movements grossly intact Neck: Supple Respiratory: Clear to auscultation bilaterally, normal respiratory effort Cardiovascular: Regular rate and rhythm GI: Fairly soft, hypoactive bowel sounds, no rebound/guarding/rigidity Extremities: No edema Musculoskeletal: Moving all extremities Neuro: No overt focal neurological deficits Skin: No rashes appreciated Psych: Cooperative Assessment & Plan Assessment/Plan (1) Status post laparoscopy with lysis of adhesions: (2) SBO (small bowel obstruction): PLAN: Plan #Small bowel obstruction status post laparoscopy with lysis of adhesions 04/23 -On admission imaging with severe small bowel obstruction with transition point near umbilicus and small amount of free fluid but no evidence of ischemia or perforation -Patient underwent diagnostic laparoscopy converted to laparotomy, lysis of adhesions and release of small bowel obstruction on 04/23/[address] Wan -Patient still n.p.o. but due to very little output from NG and her discomfort this was removed, minimal flatus, surgery following and will advance to clears once having increase flatus -IVF decreased as urine output good -Pain control -04/27: Diet being advanced, awaiting BM #Urinary tract infection and acute cystitis secondary to E. coli -Sensitive to cephalosporins -Continue Rocephin -04/27: We will treat for 5 days, will add stop date to Rocephin #Hypokalemia -Continue to replace #Seizure disorder -Oral meds have been held due to bowel obstruction and continued lack of bowel movements -Is on IV Keppra -On Lamictal and zonisamide at home -Has not received Lamictal since 04/22, will need to monitor amount of days without Lamictal as titration may need to be resumed or may need to be started at lower dose pending how long this has to be held -04/27: None the patient is beginning diet well on Lamictal at 100 twice daily and will need to increase from there, due to still suboptimal bowel function we will hold on sinus med at this time and continue IV Keppra in addition #Hypothyroidism -Continue Synthroid when possible -04/27: We will resume Synthroid #DVT ppx: Lovenox subcu Galilea Starr MD Time spent in the patient's overall evaluation,decision-making process, review of diagnostic data, adjustment of management, discussion with other providers, nursing nursing and ancillary staff involved in patient's care documentation, 36 minutes Charges/Coding Visit Charges Inpatient E&M: 52026 Subs Hosp L2
[2023-04-27 07:28] LABS: Anion Gap 9 (5-15); BUN 4 mg/dL (7-18); BUN/Creat Ratio 9.3 RATIO (10-20); Calcium,Total 8.2 mg/dL (8.5-10.1); Chloride 109 mmol/L (98-107); Creatinine, Serum 0.43 mg/dL (0.55-1.02); EST Glomerular Filtration Rate 156 mL/min (>60); Est Glom Filt Rate - Afr Amer 189 mL/min (>60); Estimated Creatinine Clearance 109.34 ml/min; Glucose 70 mg/dL (74-106); Potassium 3.4 mmol/L (3.5-5.1); Sodium Level 138 mmol/L (136-145)
[2023-04-27] MEDS: Potassium Chloride Oral Tablet 20 MEQ 40 MEQ PO (07:47)
[2023-04-27] MEDS: Enoxaparin 40 MG/0.4 ML Syringe SC (07:47)
[2023-04-27 08:20] VITALS: BP 116/83; PULSE 64; RESP 18; TEMP 36.7; O2SAT 98
[2023-04-27] MEDS: lamoTRIgine 100 MG Tablet PO ×2 (08:55→21:21)
[2023-04-27] MEDS: 0.9% Saline Lock 10 ML Syringe IV (08:55)
--- NOTE | 2023-04-27 09:34 | PN.SURG_ITS ---
Subjective Subjective Patient is a 63 y/o F I am following in conjunction with Dr. Wan. Patient express frustration this morning secondary to not having a bowel movement and feeling stuck. She has been ambulating the hallway and sitting in the chair. She notes passing flatus. Denies nausea, vomiting, fever. She is urinating well. She is tolerating clear liquid diet. Objective Data Objective Data Vital Signs: Vital Signs Temp Pulse Resp BP Pulse Ox O2 Del Method 98.1 F 64 18 116/83 H 98 Room Air 04/27/23 08:20 04/27/23 08:20 04/27/23 08:20 04/27/23 08:20 04/27/23 08:20 04/27/23 08:20 Oxygen Delivery Method Room Air Weight: 121 lb Body Mass Index (BMI) 21.4 Intake & Output: Intake and Output for Last 24 Hours 04/25/23 04/26/23 04/27/23 23:59 23:59 23:59 Intake Total 3540 / 3540 2993.33 / 2993.33 823.33 / 823.33 Output Total 1150 / 1150 1000 / 1000 Balance 2390 / 2390 1993.33 / 1992.33 823.33 / 823.33 Lab / Micro Data 04/27/23 06:20 04/27/23 06:20 Labs: Laboratory Results - last 24 hr 04/23/23 09:30: Lamotrigine 5.6 04/27/23 06:20: WBC 6.5, RBC 3.74 L, Hgb 11.1 L, Hct 33.9 L, MCV 90.6, MCH 29.7, MCHC 32.7, RDW Std Deviation 41.0, RDW Coeff of Nan 12.5, Plt Count 250, MPV 9.3, Immature Gran % (Auto) 0.500, Neut % (Auto) 62.8, Lymph % (Auto) 24.1, [place] % (Auto) 7.7, Eos % (Auto) 4.3, Baso % (Auto) 0.6, Absolute Neuts (auto) 4.1, Absolute Lymphs (auto) 1.57, Nucleated RBC % 0, Sodium 138, Potassium 3.4 L, C hloride 109 H, Carbon Dioxide 20.0 L, Anion Gap 9, BUN 4 L, Creatinine 0.43 L, Estim Creat Clear Calc 109.34, Est GFR (MDRD) Af Amer 189, Est GFR (MDRD) Non-Af 156, BUN/Creatinine Ratio 9.3 L, Glucose 70 L, Calcium 8.2 L Micro: Microbiology 04/22/23 20:40 Urine, Clean Catch Urine Culture - Final Presumptive E. coli Streptococcus group C Physical Exam GI Inspection: abdominal distention and incision other (c/d/i at the midline. No ac tive drainage noted) Auscultation: hypoactive bowel sounds Assessment & Plan Assessment/Plan (1) Status post laparoscopy with lysis of adhesions: PLAN: I have reviewed this patient with Dr. Wan Plan to increase diet to full liquid Continue ambulation We will await bowel function We will continue to monitor this patient Charges/Coding Visit Charges Inpatient E&M: 96692 Subs Hosp L1 (post-op)
[2023-04-27 14:25] VITALS: BP 128/91; PULSE 87; RESP 18; TEMP 36.8; O2SAT 98
[2023-04-27] MEDS: Acetaminophen 325 MG Tablet 650 MG PO (20:08)
[2023-04-27 21:28] VITALS: BP 125/83; PULSE 75; RESP 16; TEMP 36.6; O2SAT 97
[2023-04-27] MEDS: Ceftriaxone 1 GM/50 ML BAG IV (22:25)
[2023-04-28] MEDS: Acetaminophen 325 MG Tablet 650 MG PO (01:58)
[2023-04-28 02:07] VITALS: BP 119/79; PULSE 73; RESP 16; TEMP 36.8; O2SAT 94
[2023-04-28 04:53] VITALS: BMI 21.3
[2023-04-28] MEDS: Levothyroxine 150 MCG Tablet PO (06:16)
[2023-04-28 06:41] LABS: Absolute Neutrophil Count 4.4 X10^3/uL (2.0-7.7); Basophil# 0.04 X10^3/uL; Basophil% 0.5 % (0-1); Eosinophil# 0.29 X10^3/uL; Hematocrit 36.5 % (37-47); Hemoglobin 12.7 g/dL (12.0-15.0); Mean Corp Hgb Conc 34.8 g/dL (32-36); Mean Corpuscular Hgb 30.5 pg (27.0-32.0); Mean Corpuscular Volume 87.5 fL (81-99); Mean Platelet Vol. 8.8 fl (6.2-12.0); Monocyte# 0.63 X10^3/uL; Monocyte% 8.6 % (0-10); NRBC Flagged by Analyzer 0 % (0-5); Neutrophil # 4.43 X10^3/uL (2.7-7.7); Neutrophil % 60.5 % (47-70); Platelet Count 272 K/mm3 (150-450); RBC Distribution Width CV 12.5 % (11.6-14.6); RBC Distribution Width SD 39.8 fl (35.1-43.9); Red Blood Count 4.17 M/mm3 (4.2-5.4); White Blood Count 7.3 K/mm3 (4.4-11.0)
[2023-04-28 07:11] LABS: Anion Gap 5 (5-15); BUN 3 mg/dL (7-18); Calcium,Total 9.4 mg/dL (8.5-10.1); Chloride 104 mmol/L (98-107); EST Glomerular Filtration Rate 133 mL/min (>60); Est Glom Filt Rate - Afr Amer 161 mL/min (>60); Estimated Creatinine Clearance 94.03 ml/min; Glucose 91 mg/dL (74-106); Potassium 3.6 mmol/L (3.5-5.1); Sodium Level 137 mmol/L (136-145)
--- NOTE | 2023-04-28 07:39 | PN.SURG_ITS ---
Subjective Subjective + BM Objective Data Objective Data Vital Signs: Vital Signs Temp Pulse Resp BP Pulse Ox O2 Del Method 98.3 F 73 16 119/79 94 Room Air 04/28/23 02:07 04/28/23 02:07 04/28/23 02:07 04/28/23 02:07 04/28/23 02:04/28/23 02:07 Oxygen Delivery Method Room Air Weight: 120 lb 5.958 oz Body Mass Index (BMI) 21.3 Intake & Output: Intake and Output for Last 24 Hours 04/26/23 04/27/23 04/28/23 23:59 23:59 23:59 Intake Total 2993.33 / 2993.33 1193.33 / 1593.33 600 / 600 Output Total 1000 / 1000 Balance 1992. / 1193.33 / 1593.33 600 / 600 Lab / Micro Data 04/28/23 06:18 04/28/23 06:18 Labs: Laboratory Results - last 24 hr 04/28/23 06:18: WBC 7.3, RBC 4.17 L, Hgb 12.7, Hct 36.5 L, MCV 87.5, MCH 30.5, MCHC 34.8 D, RDW Std Deviation 39.8, RDW Coeff of Nan 12.5, Plt Count 272, MPV 8.8, Immature Gran % (Auto) 0.400, Neut % (Auto) 60.5, Lymph % (Auto) 26.0, [place] % (Auto) 8.6, Eos % (Auto) 4.0, Baso % (Auto) 0.5, Absolute Neuts (auto) 4.4, Absolute Lymphs (auto) 1.90, Nucleated RBC % 0, Sodium 137, Potassium 3.6, Chloride 104, Carbon Dioxide 28.0, Anion Gap 5, BUN 3 L, Creatinine 0.50 L, Estim Creat Clear Calc 94.03, Est GFR (MDRD) Af Amer 161, Est GFR (MDRD) Non-Af 133, BUN/Creatinine Ratio 6.0 L, Glucose 91, Calcium 9.4 Micro: Microbiology 04/22/23 20:40 Urine, Clean Catch Urine Culture - Final Presumptive E. coli Streptococcus group C Physical Exam Const oriented x3 Resp normal respiratory effort Cardio regular rate GI soft to palpation GI Narrative: Tender near incision incision clean dry intact with Steri-Strips, no peritoneal signs, mild distention Assessment & Plan Assessment/Plan (1) Status post laparoscopy with lysis of adhesions: PLAN: Plan ok for reg diet- if lula ok d/c Lynda Wan M.D. Pager: [phone] [facility] [address] [place] [address], [facility], [address] [place] [address] Office: [phone]
--- NOTE | 2023-04-28 08:11 | DCINST_ITS ---
Discharge Instructions Diet Discharge Diet: Light diet - advance as tolerated Activity Discharge Activity: May Not Drive (while taking narcotic pain medications.) May shower in (days): 1 Lifting Restrictions: no lifting >20 lbs x 2 wks, no strenuous exercise for 4 wks Dressing / Incision Call your doctor if your incision/area has: Continuous Slow Oozing, Sudden Increased Bleeding, Increased Pain/ Swelling, Increased Redness, Foul Smelling Discharge and Swelling at the incision site Call your doctor if you observe: Fever of 101 or Higher Remove Dressing in: 2 days Cleanse incision/area with: Soap & Water Additional Dressing/Incision Instructions:: Steri-Strips will fall off in 7 to 10 days, if they do not fall off okay to remove after 10 days. Follow Up Care Please Follow Up With: Lynda Wan MD When: Call the office for a follow-up appointment 2 weeks; after 5 PM and on the weekends call [phone] with any concerns. Test Results: Test results from this visit will be discussed in further detail at your follow- up appointment, if applicable. Discharge Plan Admission Admit Date/Time: 04/22/23 21:54 Attending Provider: Galilea Starr Primary Care Provider: Nell Naidu NP Consulting Providers: Lynda Wan; Michelle Farooq; Vadim Godinez Instructions Additional Instructions / Restrictions: DISCHARGE INSTRUCTIONS PLEASE READ *Please take this with you to your next doctors appointment* -Please follow-up with Dr. Wan upon discharge. Please call their office to schedule hospital follow-up appointment upon discharge. -You will need to retitrate your Lamictal as you are unable to take this for several days and resuming her home dose could be dangerous -Please follow-up with your neurologist upon discharge. Please call their office to schedule a follow-up appointment upon discharge, especially given need to resume Lamictal. -Please call your primary care provider's office upon discharge to schedule a hospital follow up within 1 week. -For any concerning signs or symptoms please call 911 or proceed to the nearest emergency department Discharge Orders/Prescriptions Prescriptions: No Action lamotrigine 100 MG tablet 250 mg PO BID Patient Comments: zonisamide 100 mg capsule 450 mg PO QHS Patient Comments: take 4 capsules by mouth once daily levothyroxine 150 mcg tablet 150 mcg PO DAILY Patient Comments: take 1 tablet by mouth once daily Referrals / Follow Up: Holly Gordon DIRECTOR OF DEVELOPMENT AND MARKETING, DIRECTOR OF DEVELOPMENT AND MARKETING-C [Non-Staff] - Nell Naidu DIRECTOR OF DEVELOPMENT AND MARKETING, DIRECTOR OF DEVELOPMENT AND MARKETING-C [Primary Care Provider] -
--- NOTE | 2023-04-28 09:31 | DS.PCM_ITS ---
Providers Date of Admission: 04/22/23 Date of Discharge: 04/28/23 Primary Care Physician: CHANDLER Hinojosa Consultations 04/22/23 22:19 Consult: General Surgery Routine Consulting Provider: Lynad Wan Reason for Consult: SBO EMERGENT Consult: No MD Notified: Yes Date Notified: 04/22/23 Time Notified: 21:57 Method of Notification: ED Physician Initiated Reason For Visit: BOWEL OBSTRUCTION Diagnosis Discharge Diagnosis (1) Status post laparoscopy with lysis of adhesions: Status: Acute Code(s): Z98.890 - Other specified postprocedural states Plan #Small bowel obstruction status post laparoscopy with lysis of adhesions 04/23 #Urinary tract infection and acute cystitis secondary to E. coli- resolved #Hypokalemia-resolved #Seizure disorder #Hypothyroidism Medications at Discharge Home Medications levothyroxine 150 mcg tablet 150 mcg PO DAILY 04/22/23 zonisamide 100 mg capsule 450 mg PO QHS 04/22/23 lamotrigine 100 mg tablet 250 mg (2.5 x 100 mg) PO BID #90 tabs 04/28/23 Hospital Course Operations - (status post laparoscopy with lysis of adhesions 04/23) Summary of Care Provided Minutes Spent on Discharge: 40 Hospital Course: Patient is a 63-year-old female with history of hypothyroidism, Lyme disease, staring seizures who presented to 04/22/2023 with abdominal pain, nausea, and abdominal distention. Imaging on admission with severe small bowel obstruction with transition point near umbilicus and small amount of free fluid but no evidence of ischemia or perforation. Patient underwent diagnostic laparoscopy converted to laparotomy, lysis of adhesions and release of small bowel obstruction on 04/23/[address] Wan. Patient had difficulty moving bowels and minimal flatus, as this improved her diet was advanced and on day of discharge she had 2 bowel movements and was tolerating diet. During her admission she also was found to have a pansensitive E. coli UTI and completed a course of Rocephin. Discussed her seizures as she had been n.p.o. for multiple days and unable to take oral medications given this delay in resuming Lamictal she had to be restarted different dose. She reports she has seizure disorder with staring episodes and follows in [facility]. Discussed plan and titration of Lamictal and alternative to start another agent if necessary why Lamictal titration was underway and patient verbalized her understanding wanted to continue this and is denied and Lamictal titration and was comfortable with this plan and will contact her neurologist on discharge. Discharge instructions as followed: -Please follow-up with Dr. Wan upon discharge. Please call their office to schedule hospital follow-up appointment upon discharge. -You will need to retitrate your Lamictal as you are unable to take this for several days and resuming her home dose could be dangerous -Please follow-up with your neurologist upon discharge. Please call their office to schedule a follow-up appointment upon discharge, especially given need to resume Lamictal. -Please call your primary care provider's office upon discharge to schedule a hospital follow up within 1 week. -For any concerning signs or symptoms please call 911 or proceed to the nearest emergency department Physical Exam Narrative General: Alert, oriented, no apparent distress HEENT: Atraumatic, normocephalic Eyes: Anicteric, normal conjunctiva, extraocular movements grossly intact Neck: Supple Respiratory: Clear to auscultation bilaterally, normal respiratory effort Cardiovascular: Regular rate and rhythm GI: Fairly soft, hypoactive bowel sounds, no rebound/guarding/rigidity Extremities: No edema Musculoskeletal: Moving all extremities Neuro: No overt focal neurological deficits Skin: No rashes appreciated Psych: Cooperative Weight / BMI Weight Weight: 54.6 kg Body Mass Index (BMI) 21.3 ABG / Lab / Microbiology Data 04/28/23 06:18 04/28/23 06:18 Laboratory: Laboratory Results - last 24 hr 04/28/23 06:18: WBC 7.3, RBC 4.17 L, Hgb 12.7, Hct 36.5 L, MCV 87.5, MCH 30.5, MCHC 34.8 D, RDW Std Deviation 39.8, RDW Coeff of Nan 12.5, Plt Count 272, MPV 8.8, Immature Gran % (Auto) 0.400, Neut % (Auto) 60.5, Lymph % (Auto) 26.0, [place] % (Auto) 8.6, Eos % (Auto) 4.0, Baso % (Auto) 0.5, Absolute Neuts (auto) 4.4, Absolute Lymphs (auto) 1.90, Nucleated RBC % 0, Sodium 137, Potassium 3.6, Chloride 104, Carbon Dioxide 28.0, Anion Gap 5, BUN 3 L, Creatinine 0.50 L, Estim Creat Clear Calc 94.03, Est GFR (MDRD) Af Amer 161, Est GFR (MDRD) Non-Af 133, BUN/Creatinine Ratio 6.0 L, Glucose 91, Calcium 9.4 Microbiology: Microbiology 04/22/23 20:40 Urine, Clean Catch Urine Culture - Final Presumptive E. coli Streptococcus group C D/C Instructions Discharge Diet: Light diet - advance as tolerated May shower in (days): 1 Call your doctor if your incision/area has: Continuous Slow Oozing, Sudden Increased Bleeding, Increased Pain/ Swelling, Increased Redness, Foul Smelling Discharge and Swelling at the incision site Call your doctor if you observe: Fever of 101 or Higher Cleanse incision/area with: Soap & Water Additional Dressing/Incision Instructions: Steri-Strips will fall off in 7 to 10 days, if they do not fall off okay to remove after 10 days. Please Follow Up With: Lynda Wan MD When: Call the office for a follow-up appointment 2 weeks; after 5 PM and on the weekends call [phone] with any concerns. Meaningful Use Info Meaningful Use Diagnoses (Choose all that apply): None applicable Discharge Plan Admission Admit Date/Time: 04/22/23 21:54 Primary Reason for Your Visit: Bowel obstruction Attending Provider: Galilea Starr Primary Care Provider: Nell Naidu CONSUMER EXPERIENCE CONSULTANT Consulting Providers: Lynda Wan; Michelle Farooq; Vadim Godinez Instructions Patient Instructions: Lamictal Oral Tablet 150 mg, Bowel Obstruction Additional Instructions / Restrictions: DISCHARGE INSTRUCTIONS PLEASE READ *Please take this with you to your next doctors appointment* -Please follow-up with Dr. Wan upon discharge. Please call their office to schedule hospital follow-up appointment upon discharge. -You will need to retitrate your Lamictal as you were unable to take this for several days and abruptly resuming your home dose could be dangerous. You will be discharged on Lamictal 150 mg twice daily, would recommend continuing this dose for 7 days and then increasing to Lamictal 200mg twice daily and after 7 more days you can increase back to Lamictal 250 mg twice daily. Would highly recommend calling your prescribing physician, however, on day of discharge to discuss this as they may have alternative recommendation. -It is important that while this medication is being titrated you report any symptoms of hypersensitivity immediately physician including but not limited to fever, flulike symptoms, rash, blisters on the skin or in the eyes, mouth, ears, nose or general area, swelling of eyelids, conjunctivitis, lymphadenopathy. Add itionally please report to your physician if you have any headache, chills, fever, vomiting and nausea, stiff neck, sensitivity to light -Please follow-up with your neurologist upon discharge. Please call their office to schedule a follow-up appointment upon discharge, especially given need to resume Lamictal. Activity Discharge Activity: May Not Drive (while taking narcotic pain medications.) May shower in (days): 1 Lifting Restrictions: no lifting >20 lbs x 2 wks, no strenuous exercise for 4 wks Dressing / Incision Call your doctor if your incision/area has: Continuous Slow Oozing, Sudden Increased Bleeding, Increased Pain/ Swelling, Increased Redness, Foul Smelling Discharge and Swelling at the incision site Call your doctor if you observe: Fever of 101 or Higher Remove Dressing in: 2 days Cleanse incision/area with: Soap & Water Additional Dressing/Incision Instructions:: Steri-Strips will fall off in 7 to 10 days, if they do not fall off okay to remove after 10 days. Follow Up Care Please Follow Up With: Lynda Wan MD When: Call the office for a follow-up appointment 2 weeks; after 5 PM and on the weekends call [phone] with any concerns. Test Results: Test results from this visit will be discussed in further detail at your follow- up appointment, if applicable. -Please call your primary care provider's office upon discharge to schedule a hospital follow up within 1 week. -For any concerning signs or symptoms please call 911 or proceed to the nearest emergency department Discharge Orders/Prescriptions Prescriptions: Continued zonisamide 100 mg capsule 450 mg PO QHS Patient Comments: take 4 capsules by mouth once daily levothyroxine 150 mcg tablet 150 mcg PO DAILY Patient Comments: take 1 tablet by mouth once daily lamotrigine 100 MG tablet 250 mg PO BID Qty: 90 0RF Patient Comments: Rx Instructions: SEE DOSE TITRATION SCHEDULE IN D/C INSTRUCTIONS Referrals / Follow Up: Lynda Wan MD [Med Staff - Active Staff] - ( -Please follow-up with Dr. Wan upon discharge. Please call their office to schedule hospital follow-up appointment upon discharge.) Holly Gordon CONSUMER EXPERIENCE CONSULTANT, CONSUMER EXPERIENCE CONSULTANT-C [Non-Staff] - Nell Naidu CONSUMER EXPERIENCE CONSULTANT, CONSUMER EXPERIENCE CONSULTANT-C [Primary Care Provider] - Disposition Disposition (needs filled in before D/C Order can be placed): Home, Self Care Charges/Coding Visit Charges Inpatient E&M: 26170 Disch Hosp >30min
[2023-04-28 09:45] VITALS: BP 130/89; PULSE 78; RESP 18; TEMP 36.6; O2SAT 99
[2023-04-28] MEDS: lamoTRIgine 100 MG Tablet 150 MG PO ×2 (09:45→21:46)
[2023-04-28] MEDS: 0.9% Saline Lock 10 ML Syringe IV ×2 (09:46→16:44)
--- NOTE | 2023-04-28 10:21 | PHA.DC.MR.R ---
Pharmacy [place] Med Reconciliation Pharmacy Service has performed discharge medication reconciliation for this patient. Please see physician note regarding lamotrigine titration. The patient's discharge medication list was reviewed for discrepancies and discrepancies were resolved. Medications at Discharge Home Medications levothyroxine 150 mcg tablet 150 mcg PO DAILY 04/22/23 zonisamide 100 mg capsule 450 mg PO QHS 04/22/23 lamotrigine 100 mg tablet 250 mg (2.5 x 100 mg) PO BID #90 tabs 04/28/23
--- NOTE | 2023-04-28 10:49 | CASEMGMT ---
DELROY HUBBARD NOTE: Pt being discharged. DELROY HUBBARD to room. Introduced self and role. She states she has been up in room and in halls ambulating w/out difficulty. Pt denies having any discharge planning needs or concerns. Andrea GANNON RN, CM
[2023-04-28 16:15] VITALS: BP 133/83; PULSE 83; RESP 16; TEMP 36.9; O2SAT 98
[2023-04-28] MEDS: Ondansetron 4 MG/2 ML Vial IV (16:44)
--- NOTE | 2023-04-28 18:50 | RAD_ITS ---
STUDY: X-RAY - ABDOMEN/PELVIS REASON FOR EXAM: Female, 63 years old. n/v, ?sbo TECHNIQUE: KUB COMPARISON: None. FINDINGS: Normal visualized lung bases. Multiple distended loops of small bowel with little residual air seen within colon consistent with evolving small bowel obstruction.. There is no demonstrated free abdominal air. The visualized liver, spleen and kidneys are grossly normal in size and morphology. Normal soft tissue structures. Lumbar spine demonstrates scoliosis and degenerative change. RAD/Abdomen Single View (Portable) IMPRESSION: Findings consistent with evolving small bowel obstruction. Electronically Signed: Brian Leung MD at 19:14 EDT ,
[2023-04-28 20:20] VITALS: BP 119/84; PULSE 92; RESP 16; TEMP 36.7; O2SAT 94
[2023-04-28] MEDS: Ceftriaxone 1 GM/50 ML BAG IV (21:37)
[2023-04-28] MEDS: Zonisamide 50 MG Capsule PO (21:43)
[2023-04-28] MEDS: ZONISAMIDE 100 MG CAPSULE 400 MG PO (21:43)
[2023-04-28] MEDS: Lactated Ringers 1,000 ML 60 ML IV (22:58)
[2023-04-29 04:05] VITALS: BMI 21.3
[2023-04-29 05:00] VITALS: BP 102/65; PULSE 81; RESP 16; TEMP 36.7; O2SAT 93
--- NOTE | 2023-04-29 05:00 | RAD_ITS ---
INDICATION: assess small bowel loops EXAMINATION/TECHNIQUE: X-RAY - XR Abdomen 1 View COMPARISON: April 28, 2023 FINDINGS: BOWEL GAS PATTERN: There are multiple mildly dilated gas-filled loops of bowel throughout the abdomen appearing slightly improved when compared to the prior study. FREE AIR: Not assessed on a single supine view. ORGANOMEGALY: Not seen. CALCIFICATIONS: No abnormal calcifications observed. LOWER CHEST: No acute pathology. BONES AND SOFT TISSUES: No acute pathology. RAD/Abdomen Single View (Portable) IMPRESSION: Findings suggestive of small bowel obstruction with slight decreased prominence of the small bowel loops. Electronically Signed: Gary Shine, at 8:20 EDT ,
[2023-04-29] MEDS: Levothyroxine 150 MCG Tablet PO (05:07)
--- NOTE | 2023-04-29 07:18 | PN.HOSP_ITS ---
Reason for Visit Reason for Visit: Diagnoses Unspecified intestinal obstruction, unspecified as to partial versus complete o bstruction (04/22/23) Urinary tract infection, site not specified (04/22/23) Other specified postprocedural states (04/22/23) Subjective Subjective Patient was doing well yesterday a.m. but did not eat much for lunch and had some evolving nausea throughout the day and then vomited around dinnertime, KUB revealed evolving small bowel obstruction so she was made n.p.o. and discharge was canceled. She reports since she vomited yesterday she has been feeling better, did have some nausea and abdominal pain after drinking the Gastrografin for her scan but that is completely resolved. Objective Data Objective Data Vital Signs: Vital Signs Temp Pulse Resp BP Pulse Ox O2 Del Method 98.1 F 81 16 102/65 93 Room Air 04/29/23 05:00 04/29/23 05:00 04/29/23 05:00 04/29/23 05:00 04/29/23 05:00 04/29/23 05:00 Oxygen Delivery Method Room Air Weight: 54.573 kg Body Mass Index (BMI) 21.3 Intake & Output: Intake and Output for Last 24 Hours 04/27/23 04/28/23 04/29/23 23:59 23:59 23:59 Intake Total 1193.33 / 1593.33 1824 300 / 300 Balance 1193.33 / 1593.33 1824 300 / 300 Lab / Micro Data 04/29/23 09:10 04/29/23 09:10 Micro: Microbiology 04/22/23 20:40 Urine, Clean Catch Urine Culture - Final Presumptive E. coli Streptococcus group C Radiography Diagnostic Testing: Radiology Impression KUB X-Ray 04/28/23 18:50 IMPRESSION: Findings consistent with evolving small bowel obstruction. Electronically Signed: Brian Leung MD at 19:14 EDT , Physical Exam Narrative General: Alert, oriented, no apparent distress HEENT: Atraumatic, normocephalic Eyes: Anicteric, normal conjunctiva, extraocular movements grossly intact Neck: Supple Respiratory: Clear to auscultation bilaterally, normal respiratory effort Cardiovascular: Regular rate and rhythm GI: Fairly soft, hypoactive bowel sounds, no rebound/guarding/rigidity Extremities: No edema Musculoskeletal: Moving all extremities Neuro: No overt focal neurological deficits Skin: No rashes appreciated Psych: Cooperative Assessment & Plan Assessment/Plan (1) Status post laparoscopy with lysis of adhesions: (2) SBO (small bowel obstruction): PLAN: Plan #Small bowel obstruction status post laparoscopy with lysis of adhesions 04/23 -On admission imaging with severe small bowel obstruction with transition point near umbilicus and small amount of free fluid but no evidence of ischemia or perforation -Patient underwent diagnostic laparoscopy converted to laparotomy, lysis of adhesions and release of small bowel obstruction on 04/23/[address] Wan -Patient still n.p.o. but due to very little output from NG and her discomfort this was removed, minimal flatus, surgery following and will advance to clears once having increase flatus -IVF decreased as urine output good -Pain control -04/27: Diet being advanced, awaiting BM -04/29: Had BM yesterday and has been doing well earlier in the day however had increased nausea throughout the day and had an episode of emesis, she was made n.p.o. and surgery contacted as well and KUB ordered which showed evolving small bowel obstruction. Repeat KUB this with more gas through her bowel. Awaiting a small bowel follow-through with Gastrografin to decide on advancing diet and that we will determine further DC planning #Urinary tract infection and acute cystitis secondary to E. coli -Sensitive to cephalosporins -Continue Rocephin -04/27: We will treat for 5 days, will add stop date to Rocephin -04/29: Patient completed course of Rocephin for UTI #Hypokalemia -Continue to replace #Seizure disorder -Oral meds have been held due to bowel obstruction and continued lack of bowel movements -Is on IV Keppra -On Lamictal and zonisamide at home -Has not received Lamictal since 04/22, will need to monitor amount of days without Lamictal as titration may need to be resumed or may need to be started at lower dose pending how long this has to be held -04/27: None the patient is beginning diet well on Lamictal at 100 twice daily and will need to increase from there, due to still suboptimal bowel function we will hold on sinus med at this time and continue IV Keppra in addition -04/29: Patient zonisamide had been restarted and Lamictal titration underway, patient cannot take even pills then will need to resume IV Keppra #Hypothyroidism -Continue Synthroid when possible -04/27: We will resume Synthroid #DVT ppx: Lovenox subcu Galilea Starr MD Time spent in the patient's overall evaluation,decision-making process, review of diagnostic data, adjustment of management, discussion with other providers, nursing nursing and ancillary staff involved in patient's care documentation, 36 minutes Charges/Coding Visit Charges Inpatient E&M: 03759 Subs Hosp L2
--- NOTE | 2023-04-29 07:45 | PN.SURG_ITS ---
Subjective Subjective Patient had vomiting yesterday was made n.p.o. KUB system dilated small bowels?patient had 3 normal bowel movements prior to the vomiting. Patient states after vomiting she had no nausea did not need any pain meds. Patient states abdomen is less distended this morning not having a lot of gas but also not nauseated. KUB does show more gas throughout bowels. Objective Data Objective Data Vital Signs: Vital Signs Temp Pulse Resp BP Pulse Ox O2 Del Method 98.1 F 81 16 102/65 93 Room Air 04/29/23 05:00 04/29/23 05:00 04/29/23 05:00 04/29/23 05:00 04/29/23 05:00 04/29/23 05:00 Oxygen Delivery Method Room Air Weight: 120 lb 5 oz Body Mass Index (BMI) 21.3 Intake & Output: Intake and Output for Last 24 Hours 04/27/23 04/28/23 04/29/23 23:59 23:59 23:59 Intake Total 1193.33 / 1593.33 1824 300 / 300 Balance 1193.33 / 1593.33 1824 300 / 300 Lab / Micro Data 04/28/23 06:18 04/28/23 06:18 Micro: Microbiology 04/22/23 20:40 Urine, Clean Catch Urine Culture - Final Presumptive E. coli Streptococcus group C Radiography Diagnostic Testing: Radiology Impression KUB X-Ray 04/28/23 18:50 IMPRESSION: Findings consistent with evolving small bowel obstruction. Electronically Signed: Brian Leung MD at 19:14 EDT , Assessment & Plan Assessment/Plan (1) Status post laparoscopy with lysis of adhesions: PLAN: Plan We will check a small bowel follow-through with Gastrografin if patient does well with this would be able to advance diet and possibly DC. As patient states she is feels quite well this morning. Did advise patient on DC to stay away from the more fibrous foods like corn or vegetable peels. Lynda Wan M.D. Pager: [phone] [facility] [address] [place] [address], [facility], [address] [place] [address] Office: [phone]
--- NOTE | 2023-04-29 08:30 | RAD_ITS ---
CLINICAL HISTORY: Female, 63 years old. Abdominal pain PROCEDURE: Small bowel follow-through TECHNIQUE: (All elements of maximal sterile barrier technique followed, including US elements as applicable) After the administration of oral contrast, multiple images of the abdomen were obtained. FINDINGS: Oral contrast is seen within stomach and duodenum on the immediate image. Further images demonstrate moderately dilated small bowel. However, oral contrast is seen in the colon on the 3, 5, and 7 hour images. Findings are suggestive of a mild partial small bowel obstruction. RAD/Small Bowel Series Only IMPRESSION: Mild partial small bowel obstruction. Electronically Signed: Philip Evans MD at 21:57 EDT ,
[2023-04-29 09:00] VITALS: BP 112/75; PULSE 85; RESP 16; TEMP 36.6
[2023-04-29] MEDS: lamoTRIgine 100 MG Tablet 150 MG PO ×2 (09:14→21:02)
[2023-04-29] MEDS: Enoxaparin 40 MG/0.4 ML Syringe SC (09:25)
[2023-04-29 09:27] LABS: Absolute Lymphocyte Count 1.92 X10^3/uL (0.83-4.51); Absolute Neutrophil Count 5.5 X10^3/uL (2.0-7.7); Basophil# 0.07 X10^3/uL; Basophil% 0.8 % (0-1); Eosinophil# 0.28 X10^3/uL; Eosinophils% 3.3 % (0-5); Hematocrit 41.8 % (37-47); Hemoglobin 14.1 g/dL (12.0-15.0); Lymphocyte # 1.92 X10^3/ul (0.83-4.51); Lymphocyte % 22.5 % (19-41); Mean Corp Hgb Conc 33.7 g/dL (32-36); Mean Corpuscular Hgb 30.3 pg (27.0-32.0); Mean Corpuscular Volume 89.9 fL (81-99); Mean Platelet Vol. 8.9 fl (6.2-12.0); Monocyte# 0.67 X10^3/uL; Monocyte% 7.9 % (0-10); NRBC Flagged by Analyzer 0 % (0-5); Neutrophil % 64.6 % (47-70); Platelet Count 343 K/mm3 (150-450); RBC Distribution Width CV 12.6 % (11.6-14.6); RBC Distribution Width SD 41.1 fl (35.1-43.9); Red Blood Count 4.65 M/mm3 (4.2-5.4); White Blood Count 8.5 K/mm3 (4.4-11.0)
[2023-04-29 09:54] LABS: ALB/GLOB Ratio 1.1 RATIO (0.9-2.4); AST(SGOT) 14 U/L (15-37); Alanine Aminotransfer ALT/SGPT 18 U/L (13-56); Albumin, Serum 3.7 g/dL (3.2-5.0); Alkaline Phosphatase 83 U/L (45-117); Anion Gap 9 (5-15); BUN 5 mg/dL (7-18); BUN/Creat Ratio 7.5 RATIO (10-20); Calcium,Total 9.9 mg/dL (8.5-10.1); Chloride 101 mmol/L (98-107); Creatinine, Serum 0.67 mg/dL (0.55-1.02); EST Glomerular Filtration Rate 94 mL/min (>60); Est Glom Filt Rate - Afr Amer 114 mL/min (>60); Estimated Creatinine Clearance 70.17 ml/min; Globulin 3.4 g/dL (2.2-4.2); Glucose 73 mg/dL (74-106); Potassium 3.1 mmol/L (3.5-5.1); Protein, Total 7.1 g/dL (6.4-8.2); Sodium Level 136 mmol/L (136-145)
[2023-04-29] MEDS: Potassium Chloride 10mEq/100mL 10 MEQ/100 ML IV.SOLN. 100 MEQ IV BOLUS ×2 (11:45→13:05)
[2023-04-29 15:00] VITALS: BP 112/76; PULSE 86; RESP 16; TEMP 36.6; O2SAT 100
[2023-04-29] MEDS: Lactated Ringers 1,000 ML 60 ML IV (20:45)
[2023-04-29 20:51] VITALS: BP 112/68; PULSE 81; RESP 16; TEMP 36.8; O2SAT 96
[2023-04-29] MEDS: ZONISAMIDE 100 MG CAPSULE 400 MG PO (21:02)
[2023-04-29] MEDS: Zonisamide 50 MG Capsule PO (21:02)
[2023-04-30 02:26] VITALS: BMI 21.3
[2023-04-30 05:15] VITALS: BP 96/67; PULSE 74; RESP 16; TEMP 36.6; O2SAT 96
[2023-04-30] MEDS: Levothyroxine 150 MCG Tablet PO (05:22)
--- NOTE | 2023-04-30 06:20 | RAD_ITS ---
STUDY: X-RAY - ABDOMEN/PELVIS REASON FOR EXAM: Female, 63 years old. Followup KUB from bowel series on 04/28 TECHNIQUE: 4 views COMPARISON: April 29, 2023 at 15:59 hours. FINDINGS: Normal visualized lung bases. There is small bowel dilatation. There is contrast in the colon. There is no demonstrated free abdominal air. Mild scoliosis. RAD/Abd Decub and/or Erect(Portabl IMPRESSION: Probable small bowel ileus. Electronically Signed: Jimmie Armendariz DO at 20:38 EDT ,
[2023-04-30 06:45] LABS: Absolute Lymphocyte Count 1.99 X10^3/uL (0.83-4.51); Absolute Neutrophil Count 4.7 X10^3/uL (2.0-7.7); Basophil# 0.06 X10^3/uL; Basophil% 0.8 % (0-1); Eosinophil# 0.38 X10^3/uL; Eosinophils% 4.8 % (0-5); Hematocrit 36.8 % (37-47); Hemoglobin 12.3 g/dL (12.0-15.0); Lymphocyte # 1.99 X10^3/ul (0.83-4.51); Lymphocyte % 25.3 % (19-41); Mean Corp Hgb Conc 33.4 g/dL (32-36); Mean Corpuscular Hgb 30.1 pg (27.0-32.0); Mean Platelet Vol. 8.9 fl (6.2-12.0); Monocyte% 8.9 % (0-10); NRBC Flagged by Analyzer 0 % (0-5); Neutrophil # 4.67 X10^3/uL (2.7-7.7); Neutrophil % 59.3 % (47-70); Platelet Count 303 K/mm3 (150-450); RBC Distribution Width CV 12.9 % (11.6-14.6); RBC Distribution Width SD 41.9 fl (35.1-43.9); Red Blood Count 4.09 M/mm3 (4.2-5.4); White Blood Count 7.9 K/mm3 (4.4-11.0)
[2023-04-30 07:13] LABS: Anion Gap 14 (5-15); BUN 10 mg/dL (7-18); BUN/Creat Ratio 17.5 RATIO (10-20); Chloride 102 mmol/L (98-107); Creatinine, Serum 0.57 mg/dL (0.55-1.02); EST Glomerular Filtration Rate 113 mL/min (>60); Est Glom Filt Rate - Afr Amer 137 mL/min (>60); Estimated Creatinine Clearance 82.48 ml/min; Glucose 60 mg/dL (74-106); Potassium 3.4 mmol/L (3.5-5.1); Sodium Level 137 mmol/L (136-145)
[2023-04-30 07:59] VITALS: BP 103/68; PULSE 74; RESP 17; TEMP 36.7; O2SAT 98
--- NOTE | 2023-04-30 08:22 | PN.SURG_ITS ---
Subjective Subjective Patient did have some dilated small bowel on her small bowel follow-through did make it to the colon at 3 hours; patient did have multiple bowel movements overnight as well as this morning. Patient denies any abdominal pain all day yesterday or nausea. Objective Data Objective Data Vital Signs: Vital Signs Temp Pulse Resp BP Pulse Ox O2 Del Method 98.0 F 74 17 103/68 98 Room Air 04/30/23 07:59 04/30/23 07:59 04/30/23 07:59 04/30/23 07:59 04/30/23 07:59 04/30/23 07:59 Oxygen Delivery Method Room Air Weight: 120 lb 5.958 oz Body Mass Index (BMI) 21.3 Intake & Output: Intake and Output for Last 24 Hours 04/28/23 04/29/23 04/30/23 23:59 23:59 23:59 Intake Total 1824 1740 / 1790 730 / 730 Balance 1824 1740 / 1790 730 / 730 Lab / Micro Data 04/30/23 06:05 04/30/23 06:05 Labs: Laboratory Results - last 24 hr 04/29/23 09:10: WBC 8.5, RBC 4.65, Hgb 14.1, Hct 41.8, MCV 89.9, MCH 30.3, MCHC 33.7, RDW Std Deviation 41.1, RDW Coeff of Nan 12.6, Plt Count 343, MPV 8.9, Immature Gran % (Auto) 0.900, Neut % (Auto) 64.6, Lymph % (Auto) 22.5, [place] % (Auto) 7.9, Eos % (Auto) 3.3, Baso % (Auto) 0.8, Absolute Neuts (auto) 5.5, Absolute Lymphs (auto) 1.92, Nucleated RBC % 0, Sodium 136, Potassium 3.1 L, Chloride 101, Carbon Dioxide 26.0, Anion Gap 9, BUN 5 L, Creatinine 0.67, Estim Creat Clear Calc 70.17, Est GFR (MDRD) Af Amer 114, Est GFR (MDRD) Non-Af 94, BUN/Creatinine Ratio 7.5 L, Glucose 73 L, Calcium 9.9, Total Bilirubin 0.40, AST 14 L, ALT 18, Alkaline Phosphatase 83, Total Protein 7.1, Albumin 3.7, Globulin 3.4, Albumin/Globulin Ratio 1.1 04/30/23 06:05: WBC 7.9, RBC 4.09 L, Hgb 12.3, Hct 36.8 L, MCV 90.0, MCH 30.1, MCHC 33.4, RDW Std Deviation 41.9, RDW Coeff of Nan 12.9, Plt Count 303, MPV 8.9, Immature Gran % (Auto) 0.900, Neut % (Auto) 59.3, Lymph % (Auto) 25.3, [place] % (Auto) 8.9, Eos % (Auto) 4.8, Baso % (Auto) 0.8, Absolute Neuts (auto) 4.7, Absolute Lymphs (auto) 1.99, Nucleated RBC % 0, Sodium 137, Potassium 3.4 L, Chloride 102, Carbon Dioxide 21.0, Anion Gap 14, BUN 10, Creatinine 0.57, Estim Creat Clear Calc 82.48, Est GFR (MDRD) Af Amer 137, Est GFR (MDRD) Non-Af 113, BUN/Creatinine Ratio 17.5, Glucose 60 L, Calcium 9.0 Micro: Microbiology 04/22/23 20:40 Urine, Clean Catch Urine Culture - Final Presumptive E. coli Streptococcus group C Radiography Diagnostic Testing: Radiology Impression Small Bowel X-Ray 04/29/23 08:30 IMPRESSION: Mild partial small bowel obstruction. Electronically Signed: Philip Evans MD at 21:57 EDT Reading Location ID and State: [address] [place] [address] Tel , Service support , Physical Exam Const oriented x3 Resp normal respiratory effort Cardio regular rate GI soft to palpation GI Narrative: Tender near incision incision clean dry intact with Steri-Strips, no peritoneal signs, mild distention Assessment & Plan Assessment/Plan (1) Status post laparoscopy with lysis of adhesions: PLAN: Plan Advance to regular diet. Patient tolerates okay to DC home. Did discuss with patient to avoid high-fiber diet currently. Lynda Wan M.D. Pager: [phone] [facility] [address] [place] [address], [facility], [address] [place] [id number] Office: [phone]
[2023-04-30] MEDS: Potassium Chloride Oral Tablet 20 MEQ 40 MEQ PO (09:13)
[2023-04-30] MEDS: lamoTRIgine 100 MG Tablet 150 MG PO (09:13)
--- NOTE | 2023-04-30 11:35 | PCM.DC ---
Discharge Instructions Diet Discharge Diet: Light diet - advance as tolerated Activity May shower in (days): 1 Dressing / Incision Call your doctor if your incision/area has: Continuous Slow Oozing, Sudden Increased Bleeding, Increased Pain/ Swelling, Increased Redness, Foul Smelling Discharge and Swelling at the incision site Call your doctor if you observe: Fever of 101 or Higher Cleanse incision/area with: Soap & Water Additional Dressing/Incision Instructions:: Steri-Strips will fall off in 7 to 10 days, if they do not fall off okay to remove after 10 days. Follow Up Care Please Follow Up With: Lynda Wan MD Test Results: Test results from this visit will be discussed in further detail at your follow-up appointment, if applicable. Discharge Plan Admission Admit Date/Time: 04/22/23 21:54 Primary Reason for Your Visit: Bowel obstruction Attending Provider: Galilea Starr Primary Care Provider: Nell Naidu NP Consulting Providers: Lynda Wan; Michelle Farooq; Vadim Godinez Instructions Patient Instructions: Lamictal Oral Tablet 150 mg, Bowel Obstruction Additional Instructions / Restrictions: DISCHARGE INSTRUCTIONS PLEASE READ *Please take this with you to your next doctors appointment* -Please follow-up with Dr. Wan upon discharge. Please call their office to schedule hospital follow-up appointment upon discharge. -You will need to retitrate your Lamictal as you were unable to take this for several days and abruptly resuming your home dose could be dangerous. You will be discharged on Lamictal 150 mg twice daily, would recommend continuing this dose for 7 days and then increasing to Lamictal 200mg twice daily and after 7 more days you can increase back to Lamictal 250 mg twice daily. Would highly recommend calling your prescribing physician, however, on day of discharge to discuss this as they may have alternative recommendation. -It is important that while this medication is being titrated you report any symptoms of hypersensitivity immediately physician including but not limited to fever, flulike symptoms, rash, blisters on the skin or in the eyes, mouth, ears, nose or general area, swelling of eyelids, conjunctivitis, lymphadenopathy. Additionally please report to your physician if you have any headache, chills, fever, vomiting and nausea, stiff neck, sensitivity to light -Please follow-up with your neurologist upon discharge. Please call their office to schedule a follow-up appointment upon discharge, especially given need to resume Lamictal. Activity Discharge Activity: May Not Drive (while taking narcotic pain medications.) May shower in (days): 1 Lifting Restrictions: no lifting >20 lbs x 2 wks, no strenuous exercise for 4 wks Dressing / Incision Call your doctor if your incision/area has: Continuous Slow Oozing, Sudden Increased Bleeding, Increased Pain/ Swelling, Increased Redness, Foul Smelling Discharge and Swelling at the incision site Call your doctor if you observe: Fever of 101 or Higher Remove Dressing in: 2 days Cleanse incision/area with: Soap & Water Additional Dressing/Incision Instructions:: Steri-Strips will fall off in 7 to 10 days, if they do not fall off okay to remove after 10 days. Follow Up Care Please Follow Up With: Lynda Wan MD When: Call the office for a follow-up appointment 2 weeks; after 5 PM and on the weekends call [phone] with any concerns. Test Results: Test results from this visit will be discussed in further detail at your follow-up appointment, if applicable. -Please call your primary care provider's office upon discharge to schedule a hospital follow up within 1 week. -For any concerning signs or symptoms please call 911 or proceed to the nearest emergency department Discharge Orders/Prescriptions Prescriptions: Continued zonisamide 100 mg capsule 450 mg PO QHS Patient Comments: take 4 capsules by mouth once daily levothyroxine 150 mcg tablet 150 mcg PO DAILY Patient Comments: take 1 tablet by mouth once daily lamotrigine 100 MG tablet 250 mg PO BID Qty: 90 0RF Patient Comments: Rx Instructions: SEE DOSE TITRATION SCHEDULE IN D/C INSTRUCTIONS Referrals / Follow Up: Lynda Wan MD [Med Staff - Active Staff] - ( -Please follow-up with Dr. Wan upon discharge. Please call their office to schedule hospital follow-up appointment upon discharge.) Holly Gordon ROD BUSTER HELPER, ROD BUSTER HELPER-C [Non-Staff] - Nell Naidu ROD BUSTER HELPER, ROD BUSTER HELPER-C [Primary Care Provider] - Disposition Disposition (needs filled in before D/C Order can be placed): Home, Self Care
--- NOTE | 2023-04-30 11:39 | PCM.DC.SUM ---
Providers Date of Admission: 04/22/23 Date of Discharge: 04/30/23 Primary Care Physician: CHANDLER Hinojosa Consultations 04/22/23 22:19 Consult: General Surgery Routine Consulting Provider: Lynda Wan Reason for Consult: SBO EMERGENT Consult: No MD Notified: Yes Date Notified: 04/22/23 Time Notified: 21:57 Method of Notification: ED Physician Initiated Reason For Visit: BOWEL OBSTRUCTION Diagnosis Discharge Diagnosis (1) Status post laparoscopy with lysis of adhesions: Status: Acute Code(s): Z98.890 - Other specified postprocedural states Plan #Small bowel obstruction status post laparoscopy with lysis of adhesions 04/23 #Urinary tract infection and acute cystitis secondary to E. coli #Hypokalemia- resolved #Seizure disorder #Hypothyroidism Medications at Discharge Home Medications levothyroxine 150 mcg tablet 150 mcg PO DAILY 04/22/23 zonisamide 100 mg capsule 450 mg PO QHS 04/22/23 lamotrigine 100 mg tablet 250 mg (2.5 x 100 mg) PO BID #90 tabs 04/28/23 Hospital Course Summary of Care Provided Minutes Spent on Discharge: 32 Hospital Course: Patient is a 63-year-old female with history of hypothyroidism, Lyme disease, staring seizures who presented to [facility] 04/22/2023 with abdominal pain, nausea, and abdominal distention. Imaging on admission with severe small bowel obstruction with transition point near umbilicus and small amount of free fluid but no evidence of ischemia or perforation. Patient underwent diagnostic laparoscopy converted to laparotomy, lysis of adhesions and release of small bowel obstruction on 04/23/[address] Wan. Patient had difficulty moving bowels and minimal flatus, as this improved her diet was advanced and she had been doing well on 04/28 which was the date she was originally going to be discharged however in the evening she developed abdominal pain and vomiting again. She was made n.p.o. and had KUB which had some distended loops of small bowel but nonspecific. She did a small bowel follow-through that showed some dilated small bowel but it did make it to the colon at 3 hours and she had multiple bowel movements overnight and into the morning. She tolerated breakfast of eggs and toast well with no abdominal pain or nausea and was feeling well and would like to be discharged home. She tolerated this for several hours with no difficulties. During her admission she also was found to have a pansensitive E. coli UTI and completed a course of Rocephin. Discussed her seizures as she had been n.p.o. for multiple days and unable to take oral medications given this delay in resuming Lamictal she had to be restarted different dose. She reports she has seizure disorder with staring episodes and follows in [facility]. Discussed plan and titration of Lamictal and alternative to start another agent if necessary why Lamictal titration was underway and patient verbalized her understanding wanted to continue this and is denied and Lamictal titration and was comfortable with this plan and will contact her neurologist on discharge. Discharge instructions as followed: -Please follow-up with Dr. Wan upon discharge. Please call their office to schedule hospital follow-up appointment upon discharge. -You will need to retitrate your Lamictal as you are unable to take this for several days and resuming her home dose could be dangerous -Please follow-up with your neurologist upon discharge. Please call their office to schedule a follow-up appointment upon discharge, especially given need to resume Lamictal. -Please call your primary care provider's office upon discharge to schedule a hospital follow up within 1 week. -For any concerning signs or symptoms please call 911 or proceed to the nearest emergency department Physical Exam Narrative General: Alert, oriented, no apparent distress HEENT: Atraumatic, normocephalic Eyes: Anicteric, normal conjunctiva, extraocular movements grossly intact Neck: Supple Respiratory: Clear to auscultation bilaterally, normal respiratory effort Cardiovascular: Regular rate and rhythm GI: Fairly soft, hypoactive bowel sounds, no rebound/guarding/rigidity Extremities: No edema Musculoskeletal: Moving all extremities Neuro: No overt focal neurological deficits Skin: No rashes appreciated Psych: Cooperative Weight / BMI Weight Weight: 54.6 kg Body Mass Index (BMI) 21.3 ABG / Lab / Microbiology Data 04/30/23 06:05 04/30/23 06:05 Laboratory: Laboratory Results - last 24 hr 04/30/23 06:05: WBC 7.9, RBC 4.09 L, Hgb 12.3, Hct 36.8 L, MCV 90.0, MCH 30.1, MCHC 33.4, RDW Std Deviation 41.9, RDW Coeff of Nan 12.9, Plt Count 303, MPV 8.9, Immature Gran % (Auto) 0.900, Neut % (Auto) 59.3, Lymph % (Auto) 25.3, Churchill % (Auto) 8.9, Eos % (Auto) 4.8, Baso % (Auto) 0.8, Absolute Neuts (auto) 4.7, Absolute Lymphs (auto) 1.99, Nucleated RBC % 0, Sodium 137, Potassium 3.4 L, Chloride 102, Carbon Dioxide 21.0, Anion Gap 14, BUN 10, Creatinine 0.57, Estim Creat Clear Calc 82.48, Est GFR (MDRD) Af Amer 137, Est GFR (MDRD) Non-Af 113, BUN/Creatinine Ratio 17.5, Glucose 60 L, Calcium 9.0 Microbiology: Microbiology 04/22/23 20:40 Urine, Clean Catch Urine Culture - Final Presumptive E. coli Streptococcus group C Radiography Diagnostic Testing: Radiology Impression Small Bowel X-Ray 04/29/23 08:30 IMPRESSION: Mild partial small bowel obstruction. Electronically Signed: Philip Evans MD at 21:57 EDT Reading Location ID and State: [address] [place] [address] Tel , Service support , D/C Instructions Discharge Diet: Light diet - advance as tolerated May shower in (days): 1 Call your doctor if your incision/area has: Continuous Slow Oozing, Sudden Increased Bleeding, Increased Pain/ Swelling, Increased Redness, Foul Smelling Discharge and Swelling at the incision site Call your doctor if you observe: Fever of 101 or Higher Cleanse incision/area with: Soap & Water Additional Dressing/Incision Instructions: Steri-Strips will fall off in 7 to 10 days, if they do not fall off okay to remove after 10 days. Please Follow Up With: Lynda Wan MD When: Call the office for a follow-up appointment 2 weeks; after 5 PM and on the weekends call [phone] with any concerns. Meaningful Use Info Meaningful Use Diagnoses (Choose all that apply): None applicable Discharge Plan Admission Admit Date/Time: 04/22/23 21:54 Primary Reason for Your Visit: Bowel obstruction Attending Provider: Galilea Starr Primary Care Provider: Older,Nell FRONT OFFICE MEDICAL ASSISTANT Consulting Providers: Lynda Wan; Michelle Farooq; Vadim Godinez Instructions Patient Instructions: Lamictal Oral Tablet 150 mg, Bowel Obstruction Additional Instructions / Restrictions: DISCHARGE INSTRUCTIONS PLEASE READ *Please take this with you to your next doctors appointment* -Please follow-up with Dr. Wan upon discharge. Please call their office to schedule hospital follow-up appointment upon discharge. -You will need to retitrate your Lamictal as you were unable to take this for several days and abruptly resuming your home dose could be dangerous. You will be discharged on Lamictal 150 mg twice daily, would recommend continuing this dose for 7 days and then increasing to Lamictal 200mg twice daily and after 7 more days you can increase back to Lamictal 250 mg twice daily. Would highly recommend calling your prescribing physician, however, on day of discharge to discuss this as they may have alternative recommendation. -It is important that while this medication is being titrated you report any symptoms of hypersensitivity immediately physician including but not limited to fever, flulike symptoms, rash, blisters on the skin or in the eyes, mouth, ears, nose or general area, swelling of eyelids, conjunctivitis, lymphadenopathy. Additionally please report to your physician if you have any headache, chills, fever, vomiting and nausea, stiff neck, sensitivity to light -Please follow-up with your neurologist upon discharge. Please call their office to schedule a follow-up appointment upon discharge, especially given need to resume Lamictal. Activity Discharge Activity: May Not Drive (while taking narcotic pain medications.) May shower in (days): 1 Lifting Restrictions: no lifting >20 lbs x 2 wks, no strenuous exercise for 4 wks Dressing / Incision Call your doctor if your incision/area has: Continuous Slow Oozing, Sudden Increased Bleeding, Increased Pain/ Swelling, Increased Redness, Foul Smelling Discharge and Swelling at the incision site Call your doctor if you observe: Fever of 101 or Higher Remove Dressing in: 2 days Cleanse incision/area with: Soap & Water Additional Dressing/Incision Instructions:: Steri-Strips will fall off in 7 to 10 days, if they do not fall off okay to remove after 10 days. Follow Up Care Please Follow Up With: Lynda Wan MD When: Call the office for a follow-up appointment 2 weeks; after 5 PM and on the weekends call [phone] with any concerns. Test Results: Test results from this visit will be discussed in further detail at your follow-up appointment, if applicable. -Please call your primary care provider's office upon discharge to schedule a hospital follow up within 1 week. -For any concerning signs or symptoms please call 911 or proceed to the nearest emergency department Discharge Orders/Prescriptions Prescriptions: Continued zonisamide 100 mg capsule 450 mg PO QHS Patient Comments: take 4 capsules by mouth once daily levothyroxine 150 mcg tablet 150 mcg PO DAILY Patient Comments: take 1 tablet by mouth once daily lamotrigine 100 MG tablet 250 mg PO BID Qty: 90 0RF Patient Comments: Rx Instructions: SEE DOSE TITRATION SCHEDULE IN D/C INSTRUCTIONS Referrals / Follow Up: Lynda Wan MD [Med Staff - Active Staff] - ( -Please follow-up with Dr. Wan upon discharge. Please call their office to schedule hospital follow-up appointment upon discharge.) Holly Gordon FRONT OFFICE MEDICAL ASSISTANT, FRONT OFFICE MEDICAL ASSISTANT-C [Non-Staff] - Nell Naidu FRONT OFFICE MEDICAL ASSISTANT, FRONT OFFICE MEDICAL ASSISTANT-C [Primary Care Provider] - Disposition Disposition (needs filled in before D/C Order can be placed): Home, Self Care Charges/Coding Visit Charges Inpatient E&M: 30713 Disch Hosp >30min
== END 2023-04-30 12:23 | disposition home or self-care (01) | DRG 336 ==
LOC: ED 21:55 → MS3 21:59
PROVIDERS: Anesthesiology; Internal Medicine; Physician Assistant; Surgery; Admitting Provider Family Medicine; Emergency Provider Emergency Medicine; PCP Nurse Practitioner; Visit Provider Internal Medicine
PROC: 0DN80ZZ Release Small Intestine, Open Approach (ICD-10-PCS; CPT 49320; principal; 2023-04-23 13:15)
DX: K56.50 Intestinal adhesions [bands], unspecified as to partial versus complete obstruction (principal); N30.00 Acute cystitis without hematuria; E03.9 Hypothyroidism, unspecified; G40.909 Epilepsy, unspecified, not intractable, without status epilepticus; E87.6 Hypokalemia; Z53.31 Laparoscopic surgical procedure converted to open procedure; B96.20 Unspecified Escherichia coli [E. coli] as the cause of diseases classified elsewhere; Z79.890 Hormone replacement therapy; Z79.899 Other long term (current) drug therapy; Z90.49 Acquired absence of other specified parts of digestive tract
CPT/HCPCS: 36415; 74018; 74019; 74177; 74250; 80048; 80053; 81001; 82542; 83735; 84100; 84443; 85025; 85730; 87086; 87088; 87186; 93005; 94668; 99285; J7030; J7120; Q9967; A4216; J2405